=== PATIENT | male | born 1995 | race Caucasian/White ===

== ENCOUNTER → 2020-06-21 14:03 | Outpatient (CLI) | payer BC, SELFPAY ==
[2020-06-22 12:20] LABS: COVID19 Sendout Not Detected (Not Detect)
== END ==
PROVIDERS: Visit Provider Physician Assistant
DX: Z11.59 Encounter for screening for other viral diseases (principal)
CPT/HCPCS: 87635

== ENCOUNTER → 2020-06-24 12:55 | Outpatient (CLI) | payer BC, SELFPAY ==
--- NOTE | 2020-06-30 08:48 | PM.PFT.1 ---
Pulmonary Function Test Referral & Results Date Patient Seen: 06/24/20 Requesting provider: Gerri Dunn Results: The spirometry demonstrates an FVC of 4.67 L which is 79% of predicted. The FEV1 was measured at 3.97 L which is 81% of predicted. The FEV1/FVC ratio was 85 which is 102% of predicted. Following the administration of bronchodilator there was a 14% improvement in FEV1 and a 47% improvement in FEF 25-75%. Lung volumes show an SVC of 4.47 L which is 78% of predicted. The diffusing capacity was measured at 34.73 which is 99% of predicted. The maximum voluntary ventilation was normal Interpretation: This study suggest perhaps mild obstructive lung disease based on slight reduction FEV1 as well as minimal improvement in small airway flow based on improvement in FEF 25-75% after bronchodilator. However reviewing flow volume loop there is really no evidence of obstructive lung disease on that basis There may also be minimal restrictive lung disease based on slight reduction in lung volumes/SVC. Clinical correlation suggested
== END ==
PROVIDERS: PCP Internal Medicine; Referring Provider Internal Medicine; Visit Provider Internal Medicine
DX: J45.20 Mild intermittent asthma, uncomplicated (principal); R06.02 Shortness of breath; Z87.891 Personal history of nicotine dependence
CPT/HCPCS: 94060; 94726; 94729

== ENCOUNTER → 2020-08-04 12:40 | Outpatient (CLI) | payer BC, SELFPAY ==
--- NOTE | 2020-08-04 13:19 | DI.CT.S_ITS ---
PROCEDURE: CT CHEST WO CON INDICATIONS: Pectus excavatum, shortness of breath, Marfans TECHNIQUE: Noncontrast 5 mm thick sections acquired from the pulmonary apices to the posterior costophrenic angles. 1 mm lung window, 5 mm thick coronal and sagittal and 7 mm axial MIP reformats were then acquired. For radiation dose reduction, the following was used: automated exposure control, adjustment of mA and/or kV according to patient size. COMPARISON: None. FINDINGS: Image quality: Excellent. Lungs and pleura: No acute air space opacities. No pleural effusions or pneumothorax. Central and peripheral airways are patent and normal in caliber. Mediastinum: Heart size is normal. No pericardial effusion. There is close association of the right ventricle epicardium with the inward depression of the left anterior chest wall. No mediastinal adenopathy by size criteria. Thoracic aorta and central pulmonary arteries are normal in size. Esophagus is normal in caliber. No hiatal hernia. Bones and chest wall: There is pectus excavatum deformity. The Coleen index is 4.98. There is also inward depression of the left anterior chest wall to a marked degree. This is accentuated by congenital scoliosis which has been partially corrected with Cutler rods. Depression index is 0.93. There is persistent levoscoliosis of the cervical thoracic spine to the level of T3. No suspicious bony lesions. No vertebral body compression fractures. No axillary or supraclavicular adenopathy by size criteria. Thyroid gland is unremarkable . Abdomen: Visualized upper abdominal solid organs and bowel loops appear normal in the absence of contrast. IMPRESSION: 1. Pectus excavatum deformity as described. 2. Partially corrected congenital scoliosis with Cutler rods throughout most of the thoracic spine. Dictated by: Aurelia Ridley M.D. on 08/04/2020 at 14:46 Approved by: Aurelia Ridley M.D. on 08/04/2020 at 15:05
== END ==
PROVIDERS: PCP Internal Medicine; Referring Provider Internal Medicine; Visit Provider Internal Medicine
DX: R06.02 Shortness of breath (principal); Q67.6 Pectus excavatum
CPT/HCPCS: 71250

== ENCOUNTER → 2020-12-30 11:57 | Outpatient (CLI) | payer BC, SELFPAY ==
[2020-12-30] MEDS: COVID-19 VACC #1, MRNA(MOD) 100 MCG/0.5 ML VIAL IM (12:05)
== END ==
PROVIDERS: PCP Internal Medicine; Visit Provider Internal Medicine
DX: Z23 Encounter for immunization (principal)
CPT/HCPCS: 0011A; 91301

== ENCOUNTER → 2021-01-27 11:59 | Outpatient (CLI) | payer BC, SELFPAY ==
[2021-01-27] MEDS: COVID-19 VACC #2, MRNA(MOD) 100 MCG/0.5 ML VIAL IM (12:04)
== END ==
PROVIDERS: PCP Internal Medicine; Visit Provider Internal Medicine
DX: Z23 Encounter for immunization (principal)
CPT/HCPCS: 0012A; 91301

== ENCOUNTER 2021-02-07 17:16 | Emergency (ER) | payer BC, SELFPAY ==
[2021-02-07] VITALS (12 sets, daily range): BP systolic 88–120; BP diastolic 51–68; PULSE 70–110; RESP 15–30; TEMP 36.2; O2SAT 96–100; BMI 15.5
--- NOTE | 2021-02-07 17:37 | DI.CT.S_ITS ---
PROCEDURE: CT HEAD/BRAIN WO CON INDICATIONS: recurrent seizures, outside normal pattern TECHNIQUE: Noncontrast 4.5 mm thick angled axial sections acquired from the foramen magnum to the vertex, with coronal and sagittal reformats. For radiation dose reduction, the following was used: automated exposure control, adjustment of mA and/or kV according to patient size. COMPARISON: None. FINDINGS: Image quality: Excellent. CSF spaces: Basal cisterns are patent. No extra-axial fluid collections. Ventricles are normal in size and shape. Brain: No midline shift. No intracranial masses or hemorrhage. Lange-white matter interface is normal. Skull and face: Calvarium and visualized facial bones are intact, without suspicious lesions. Sinuses: A mucous retention cyst or polyp is seen in the left frontal sinus. The remaining visualized paranasal sinuses and the mastoid air cells are clear. IMPRESSION: 1. No acute intracranial abnormality. Consider MRI of the brain for further evaluation when feasible. 2. Mucous retention cyst or polyp in the left frontal sinus. Dictated by: Jac Cardenas M.D. on 02/07/2021 at 18:05 Approved by: Jac Cardenas M.D. on 02/07/2021 at 18:07
[2021-02-07] MEDS: diazePAM 10 MG/2 ML SYRINGE 5 MG IV (17:40)
--- NOTE | 2021-02-07 17:52 | PC.NURSE ---
Put patient in room 2 via wheelchair. Once he was up on the bed, we were discussing how to use the urinal and patient appeared to have a seizure. I attempted to use the call light but it was not working so I put up a side rail and called for help. Patient appeared to be safe and was unharmed after the episode.
--- NOTE | 2021-02-07 18:08 | ED.SEIZURE ---
HPI - Seizure General Chief Complaint: Seizure Stated Complaint: Yung Bernard Had 6 Time Seen by Provider: 02/07/21 17:20 Source: patient and family Mode of arrival: Wheelchair Limitations: no limitations History of Present Illness HPI Narrative: This is a 26-year-old male comes emergency department with history of seizures. Patient states he was diagnosed around age of 21. He states he was told by his neurologist at that time that he had sort of a hair trigger flight or fight response but they did not have any other specific cause. 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 He denies any other medical issues. He has had adenoids removed. Patient stop taking his Keppra because he was frustrated with his neurologist and also felt like it made him very anxious. Patient was doing well without any seizures for a prolonged but began having seizures about once weekly over the past several weeks and then had 6 episodes today. He describes tonic-clonic activity when they occur, he will often have urinary continence as well as nausea and vomiting immediately afterwards. He does typically get a aura prior to. He states today he did not have any urinary incontinence. He came to emergency department because he had 6 episodes which is very atypical. He has returned to baseline mental status in between. He does not recall the events. States he has only been sleeping 4-5 hours nightly. Patient does use tobacco, he denies any alcohol. He denies any recreational drugs. 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 Patient states he last saw neurologist several years ago and has not reestablished. He does have a primary care with Gerri Dunn. Patient states that Compazine gives him a dystonic type reaction. Related Data Previous Rx's Medication Instructions Recorded zonisamide 100 mg PO DAILY #60 cap 02/07/21 Allergies Allergy/AdvReac Type Severity Reaction Status Date / Time prochlorperazine AdvReac Severe Agitated Verified 02/07/21 17:24 [From Compazine] Review of Systems Review of Systems ROS Unobtainable: All systems reviewed & are unremarkable except as noted in HPI and below Patient History Medical History (Updated 02/07/21 @ 19:45 by Michelle Padilla DO) Marfans syndrome Seizure Social History Smoking Status: Current every day smoker Smoking Status: Current every day smoker tobacco type: vaping alcohol intake frequency: 0-2 drinks per day Substance Use Type: does not use Exam Narrative Exam Narrative: GEN: Thin male tall male with classic Marfan's habitus, alert and oriented x 3, patient appears to be in mild distress. HEENT: Atraumatic, pupils are equal round reactive to light, extraocular movements are intact, nares are clear, TMs are clear with no fluid, there is no conjunctival pallor. Throat is clear without any exudates, erythema, tonsillar enlargement or uvular deviation HEART: Regular rate and rhythm without murmur, clicks, rubs. Pulses are equal in upper and lower extremities. Patient does have pectus excavatum. LUNGS:Lungs clear to auscultation, no wheezes, rales, crackles, chest moves symmetrically, no tachypnea accessory muscle use. ABD:bowel sounds normal, soft, non-tender, no guarding, rebound, rigidity, no masses noted, no hepatosplenomegaly :No CVA tenderness MSCL: Non-tender, no muscle atrophy, muscles strength 5/5 upper and lower extremities, full range of motion NEURO:CN 2-12 intact, sensation normal, reflexes 2/4 upper and lower extremities. finger nose finger test normal, heel magana test normal SKIN: No rash, erythema or other skin changes noted Initial Vital Signs Initial Vital Signs: Vital Signs Temperature 97.1 F L 02/07/21 17:19 Pulse Rate 110 H 02/07/21 17:19 Respiratory Rate 24 02/07/21 17:19 Blood Pressure 120/68 02/07/21 17:19 Pulse Oximetry 100 02/07/21 17:19 Course Orders Ordered: Discontinued Medications Diazepam (Diazepam 10 Mg/2 Ml Syringe) 5 mg IV NOW ONE Stop: 02/07/21 17:30 Last Admin: 02/07/21 17:40 Dose: 5 mg Documented by: ELISHA Levetiracetam 1,550 mg/ Sodium (Chloride) 115.5 mls @ 462 mls/hr IV NOW ONE Stop: 02/07/21 18:04 Last Infusion: 02/07/21 19:26 Dose: 0 mls/hr Documented by: Admin: 02/07/21 18:46 Dose: 462 mls/hr Documented by: ELISHA Ondansetron HCl (Ondansetron 4 Mg/2 Ml Inj) 4 mg IV NOW ONE Stop: 02/07/21 18:24 Last Admin: 02/07/21 18:30 Dose: 4 mg Documented by: ELISHA Consultations Consultation #1: Dr. Jonathon Johnson with neurology recommends starting sinus [place], 100 mg q.h.s. x5 days then 200 mg q.h.s. x5 days, then 300 mg q.h.s. they are happy to follow-up with the outpatient clinic. Also spoke with coordinator who gave me Juanis Givens with vascular at [facility] for Marfans follow up. Time: 21:03 Vital Signs Vital signs: Vital Signs - 8 hr 02/07/21 21:00 Pulse Rate 82 Respiratory Rate 21 Blood Pressure 107/56 L Pulse Oximetry 96 MDM - Seizure Lab Data Attestation: I reviewed the patient's lab results. Result diagrams: 02/07/21 18:25 02/07/21 18:25 Labs: Lab Results 02/07/21 02/07/21 02/07/21 Range/Units 18:00 18:00 18:25 WBC 7.2 (4.5-11.0) X10^3/uL RBC 4.76 (4.5-5.9) X10^6/uL Hgb 14.6 (13.5-17.5) g/dL Hct 41.8 (41-53) % MCV 87.8 (80-100) fL MCH 30.7 (26-34) PG MCHC 35.0 (30-36) % RDW 13.2 (11.6-14.8) % Plt Count 219 (150-400) X10^3/uL Neut % (Auto) 72.2 (50-75) % Lymph % (Auto) 20.8 L (25-40) % [place] % (Auto) 5.5 (3-14) % Eos % (Auto) 1.0 L (2-4) % Baso % (Auto) 0.5 (0-2) % Neut # (Auto) 5200 (5870-9724) /uL Lymph # (Auto) 1500 (1129-5536) /uL [place] # (Auto) 400 (0-900) /uL Eos # (Auto) 100 (0-450) /uL Baso # (Auto) 0 (0-100) /uL Sodium (137-145) mmol/L Potassium (3.4-5.1) mmol/L Chloride (98-107) mmol/L Carbon Dioxide (22-32) mmol/L BUN (9-20) mg/dL Creatinine (0.66-1.25) mg/dL Estimated GFR (>60) mL/min BUN/Creatinine Ratio (6-22) Glucose (70-100) mg/dL Calcium (8.4-10.2) mg/dL Phosphorus (2.5-4.5) mg/dL Magnesium (1.6-2.3) mg/dL Prolactin (3.7-17.9) ng/mL Urine Color Yellow Urine Appearance Clear Urine pH 5.5 (4.5-8.0) Ur Specific Harvey 1.010 (1.000-1.035) Urine Protein Negative (Negative) Urine Glucose (UA) Negative (Negative) g/dL Urine Ketones Negative (NEGATIVE) Urine Occult Blood Negative (Negative) Urine Nitrate Negative (Negative) Urine Bilirubin Negative (NEGATIVE) Urine Urobilinogen 0.2 (0.2) E.U./dL Ur Leukocyte Esterase Negative (NEGATIVE) Urine RBC None seen (0-5/HPF) Urine WBC None seen (0-5/HPF) Urine Bacteria None seen (None) Ur Culture Indicated? Cult not indicated U Opiates 300ng/mL cut Negative (Negative) Ur Oxycodone Screen Negative (Negative) Urine Methadone Screen Negative (Negative) Ur Barbiturates Screen Negative (Negative) U Tricyclic Antidepress Negative (Negative) Ur Phencyclidine Scrn Negative (Negative) Ur Amphetamines Screen Negative (Negative) U Methamphetamines Scrn Negative (Negative) Ur MDMA Scrn (Ecstasy) Negative (Negative) U Benzodiazepines Scrn Negative (Negative) Urine Cocaine Screen Negative (Negative) U Marijuana (THC) Screen Negative (Negative) 02/07/21 Range/Units 18:25 WBC (4.5-11.0) X10^3/uL RBC (4.5-5.9) X10^6/uL Hgb (13.5-17.5) g/dL Hct (41-53) % MCV (80-100) fL MCH (26-34) PG MCHC (30-36) % RDW (11.6-14.8) % Plt Count (150-400) X10^3/uL Neut % (Auto) (50-75) % Lymph % (Auto) (25-40) % [place] % (Auto) (3-14) % Eos % (Auto) (2-4) % Baso % (Auto) (0-2) % Neut # (Auto) (2657-7400) /uL Lymph # (Auto) (7952-7570) /uL [place] # (Auto) (0-900) /uL Eos # (Auto) (0-450) /uL Baso # (Auto) (0-100) /uL Sodium 142 (137-145) mmol/L Potassium 4.3 (3.4-5.1) mmol/L Chloride 104 (98-107) mmol/L Carbon Dioxide 30 (22-32) mmol/L BUN 11 (9-20) mg/dL Creatinine 0.85 (0.66-1.25) mg/dL Estimated GFR > 60.0 (>60) mL/min BUN/Creatinine Ratio 12.9 (6-22) Glucose 104 H (70-100) mg/dL Calcium 9.9 (8.4-10.2) mg/dL Phosphorus 2.6 (2.5-4.5) mg/dL Magnesium 2.2 (1.6-2.3) mg/dL Prolactin 11.3 (3.7-17.9) ng/mL Urine Color Urine Appearance Urine pH (4.5-8.0) Ur Specific Harvey (1.000-1.035) Urine Protein (Negative) Urine Glucose (UA) (Negative) g/dL Urine Ketones (NEGATIVE) Urine Occult Blood (Negative) Urine Nitrate (Negative) Urine Bilirubin (NEGATIVE) Urine Urobilinogen (0.2) E.U./dL Ur Leukocyte Esterase (NEGATIVE) Urine RBC (0-5/HPF) Urine WBC (0-5/HPF) Urine Bacteria (None) Ur Culture Indicated? U Opiates 300ng/mL cut (Negative) Ur Oxycodone Screen (Negative) Urine Methadone Screen (Negative) Ur Barbiturates Screen (Negative) U Tricyclic Antidepress (Negative) Ur Phencyclidine Scrn (Negative) Ur Amphetamines Screen (Negative) U Methamphetamines Scrn (Negative) Ur MDMA Scrn (Ecstasy) (Negative) U Benzodiazepines Scrn (Negative) Urine Cocaine Screen (Negative) U Marijuana (THC) Screen (Negative) Urine Dip Bedside Urine Glucose Negative Bedside Urine Bilirubin - Negative Bedside Urine Ketone - Negative Urine Specific Harvey 1.015 Bedside Urine Occult Blood - Negative Bedside Urine pH 6 Bedside Urine Protein - Negative Bedside Urine Urobilinogen - Negative Bedside Urine Nitrite - Negative Bedside Urine Leukocytes - Negative Esterase Imaging Data CT scan - head: Radiologist's Impression: [address] [id number] Scan ReportSigned Patient: Александр Resendiz DMR#: [id number]: [id number]:[id number]/Sex: 26 / MDate of Service: 02/07/21Loc: EDAccession Number: [id number] Procedure: CT head/brain wo con Ordering Provider: Livan Sosa D.O. PROCEDURE: CT HEAD/BRAIN WO CON INDICATIONS: recurrent seizures, outside normal pattern TECHNIQUE: Noncontrast 4.5 mm thick angled axial sections acquired from the foramen magnum to the vertex, with coronal and sagittal reformats. For radiation dose reduction, the following was used: automated exposure control, adjustment of mA and/or kV according to patient size. COMPARISON: None. FINDINGS: Image quality: Excellent. CSF spaces: Basal cisterns are patent. No extra-axial fluid collections. Ventricles are normal in size and shape. Brain: No midline shift. No intracranial masses or hemorrhage. Lange-white matter interface is normal. Skull and face: Calvarium and visualized facial bones are intact, without suspicious lesions. Sinuses: A mucous retention cyst or polyp is seen in the left frontal sinus. The remaining visualized paranasal sinuses and the mastoid air cells are clear. IMPRESSION: 1. No acute intracranial abnormality. Consider MRI of the brain for further evaluation when feasible. 2. Mucous retention cyst or polyp in the left frontal sinus. Dictated by: Jac Cardenas M.D. on 02/07/2021 at 18:05 Approved by: Jac Cardenas M.D. on 02/07/2021 at 18:07 ECG Data Attestation: I personally reviewed and interpreted this ECG as follows: Prior ECG tracings: not available for review Interpretation: Sinus rhythm with incomplete right bundle branch. Rate of 91, P are 134 QRS of 96 and QTC of 420. No acute ischemic changes noted. MDM Narrative Medical decision making narrative: This is a 26-year-old male with known Marfan as well as seizure disorder. Patient had quit his anti seizure medication several years ago. He has had increasing frequency of seizures over the last several weeks with description of 6 episodes today although he has returned to baseline in between. Head CT, labs and urine studies do not show any acute provoking factors. Patient does note that he has only been sleeping 4-5 hours nightly which could potentially be increasing his likelihood for seizure. He had been on Keppra most recently but had not felt well on that medication he preferred when he was taking zonisamide. He had been taking 3 tablets when he felt that he was at his best. Because of patient's Marfans history, [facility] was consulted/I spoke with Neurology coverage which was to [facility]. Dr. Jonathon Packer who recommends titrating up his zonisamide back to prior levels. I was also given contact for their Marfan follow-up clinic and this was relayed to the patient. Patient was given contact information for both but we discussed that they may need an official referral through their primary care as sometimes in emergency room ?referral is not adequate. Discharge Plan Departure Patient Disposition: Home Clinical Impression: Seizure-like activity Instructions: Seizure Disorder -- Adult Activity Restrictions/Additional Instructions: Follow up with neurology. Call for an appointment. I spoke with Dr. Elizabeth Johnson with neurology at [facility]. Takes zonisamide 100 mg nightly x5 days, then increase to 200 mg nightly x5 days, then increase to 300 mg nightly. Prescription to [facility] in [place]. You can also follow up with Juanis Givens who works with patients with Marfans at [facility] Your primary care can help with any additional referrals if needed. Please return for fevers, altered mental status, recurrent seizures, severe headaches, new chest pain, shortness of breath, persistent vomiting, new numbness, weakness tingling or other new or concerning symptoms. Prescriptions: New zonisamide 100 mg capsule 100 mg PO DAILY Qty: 60 RF: 0 Referrals: Gerri Dunn ARNP [Primary Care Provider] -
[2021-02-07 18:23] LABS: Bacteria Urine None Seen; RBC Urine None Seen (0-5/HPF); WBC Urine None Seen (0-5/HPF)
[2021-02-07] MEDS: ONDANSETRON 4 MG/2 ML INJ IV (18:30)
[2021-02-07 18:35] LABS: Add Manual Diff / Slide Review NO; Basophils Absolute Auto 0 /uL (0-100); Basophils Percent Auto 0.5 % (0-2); Eosinophils Absolute Auto 100 /uL (0-450); Hematocrit 41.8 % (41-53); Hemoglobin 14.6 g/dL (13.5-17.5); Lymphocytes Absolute Auto 1500 /uL (1100-4500); Lymphocytes Percent Auto 20.8 % (25-40); Mean Corpuscular Hemoglobin 30.7 PG (26-34); Mean Corpuscular Volume 87.8 fL (80-100); Monocytes Absolute Auto 400 /uL (0-900); Monocytes Percent Auto 5.5 % (3-14); Neutrophils Absolute Auto 5200 /uL (1500-7000); Neutrophils Percent Auto 72.2 % (50-75); Platelet Count 219 X10^3/uL (150-400); Red Blood Cell Count 4.76 X10^6/uL (4.5-5.9); Red Cell Distribution Width 13.2 % (11.6-14.8); White Blood Cell Count 7.2 X10^3/uL (4.5-11.0)
[2021-02-07] MEDS: SODIUM CHLORIDE 0.9% IV (18:46)
[2021-02-07] MEDS: LEVETIRACETAM IV (18:46)
[2021-02-07 19:04] LABS: Ur Creatinine Normal (Normal); Ur Specific Gravity Normal (Normal); Urine pH Normal (Normal)
[2021-02-07 19:05] LABS: UR Morphine/Opiate cutoff 300 Negative (Negative); Urine Amphetamines Negative (Negative); Urine Barbiturates Negative (Negative); Urine Benzodiazepines Negative (Negative); Urine Cocaine Negative (Negative); Urine MDMA Negative (Negative); Urine Methadone Negative (Negative); Urine Methamphetamines Negative (Negative); Urine Oxycodone Negative (Negative); Urine Phencyclidine Negative (Negative); Urine Tetrahydrocannabinol Negative (Negative); Urine Tricyclic Antidepressant Negative (Negative)
[2021-02-07 19:09] LABS: HEMOLYSIS < 15 (0-50)
[2021-02-07 19:15] LABS: BUN Creatinine Ratio 12.9 (6-22); Blood Urea Nitrogen 11 mg/dL (9-20); Calcium 9.9 mg/dL (8.4-10.2); Carbon Dioxide 30 mmol/L (22-32); Chloride 104 mmol/L (98-107); Estimated Glomerular Filt Rate > 60.0 mL/min (>60); Glucose 104 mg/dL (70-100); Magnesium 2.2 mg/dL (1.6-2.3); Phosphorous 2.6 mg/dL (2.5-4.5); Potassium 4.3 mmol/L (3.4-5.1); Sodium 142 mmol/L (137-145)
[2021-02-07 19:16] LABS: Appearance Urine UA CLEAR; Bilirubin Urine UA NEGATIVE (NEGATIVE); Color Urine UA YELLOW; Glucose Urine UA NEGATIVE (Negative); Ketones Urine UA NEGATIVE (NEGATIVE); Leukocyte Esterase Urine UA NEGATIVE (NEGATIVE); Nitrite Urine UA NEGATIVE (Negative); Occult Blood Urine UA NEGATIVE (Negative); Protein Urine UA NEGATIVE (Negative); Urobilinogen Urine UA 0.2 E.U./dL (0.2); pH Urine UA 5.5 (4.5-8.0)
[2021-02-07 19:21] LABS: Culture Indicated Urine Cult Not Indicated
[2021-02-07 20:44] LABS: Prolactin 11.3 ng/mL (3.7-17.9)
== END 2021-02-07 21:41 | disposition home or self-care (01) ==
PROVIDERS: Emergency Medicine; Emergency Provider Emergency Medicine; PCP Internal Medicine
DX: R56.9 Unspecified convulsions (principal)
CPT/HCPCS: 36415; 70450; 80048; 80305; 81001; 81003; 83735; 84100; 84146; 85025; 93005; 93010; 96365; 96375; 99284; J1953; J2405; J3360

== ENCOUNTER 2021-02-08 15:53 | Emergency (ER) | payer BC, SELFPAY ==
[2021-02-08] VITALS (47 sets, daily range): BP systolic 73–144; BP diastolic 50–72; PULSE 65–117; RESP 14–36; TEMP 37.2; O2SAT 95–100; BMI 15.5
--- NOTE | 2021-02-08 15:48 | ED.SEIZURE ---
HPI - Seizure <Livan Sosa DO - Last Filed: 02/09/21 06:33> General Chief Complaint: Seizure Stated Complaint: Multiple seizures Time Seen by Provider: 02/08/21 15:54 Source: patient, family and EMS Mode of arrival: EMS Limitations: no limitations History of Present Illness HPI Narrative: 26-year-old male nonsmoker with history of Marfan's and seizures presents for the 2nd time in 2 days and a chief complaint of recurrent seizures. He does have a longstanding history of seizures and had been on Keppra previously and under the care of a neurologist out of the local area. He had been off his medications for a while but sounds like he had recently resumed his zonisamide. He has had no recent traumas or injuries. He has had no fever or chills. He had been seizure fever for quite some time and then had been having then weekly for the past few weeks and had multiple seizures yesterday and presented by EMS for evaluation. He had a thorough workup, was loaded on Keppra, had a negative CT and lab work. The provider had consulted with the [facility] and Neurology at [facility] recommended increasing Zonisamide to previous levels. Related Data Previous Rx's Medication Instructions Recorded zonisamide 100 mg PO DAILY #60 cap 02/07/21 Allergies Allergy/AdvReac Type Severity Reaction Status Date / Time prochlorperazine AdvReac Severe Agitated Verified 02/07/21 17:24 [From Compazine] Review of Systems <DO Ro Rosales Last Filed: 02/09/21 06:33> Constitutional Constitutional: Denies chills, Denies fatigue, Denies fever(s), Denies frequent falls, Denies lethargy and Denies weakness Eyes Eyes: Denies change in vision, Denies eye discharge, Denies irritation and Denies loss of vision ENT Ears, Nose, Mouth, and Throat: Denies change in voice, Denies dizziness, Denies neck pain, Denies sore throat and Denies throat swelling Cardiovascular Cardiovascular: Denies chest pain, Denies irregular heart rhythm, Denies lightheadedness, Denies palpitations, Denies dyspnea, Denies dyspnea on exertion and Denies orthopnea Respiratory Respiratory: Denies cough, Denies dyspnea, Denies dyspnea on exertion and Denies wheezing Gastrointestinal Gastrointestinal: Denies abdominal pain, Denies change in bowel habits, Denies diarrhea, Denies nausea and Denies vomiting Musculoskeletal Musculoskeletal: Denies neck pain and Denies numbness Integumentary/Breasts Skin/Breast: Denies pruritus, Denies erythema, Denies rash and Denies wounds Neurologic Neurologic: Denies behavioral changes, Denies confusion, Denies dizziness, Denies frequent falls, Denies loss of vision, Denies numbness and Denies weakness Psychiatric Psychiatric: Denies anxiety, Denies behavioral changes, Denies confusion, Denies depression, Denies homicidal ideation and Denies suicidal ideation Endocrine Endocrine: Denies fatigue, Denies flushing and Denies palpitations Hematologic/Lymphatic Hematologic/Lymphatic: Denies easy bruising Allergic/Immunologic Allergic/Immunologic: Denies urticaria, Denies throat swelling and Denies wheezing Patient History <Livan Sosa DO - Last Filed: 02/09/21 06:33> Medical History Marfans syndrome Seizure Social History Smoking Status: Never smoker Smoking Status: Never smoker alcohol intake frequency: 0-2 drinks per day Substance Use Type: does not use Exam <Livan Sosa DO - Last Filed: 02/09/21 06:33> Narrative Exam Narrative: GENERAL: [26] year old patient appears stated age. Thin, marfanoid, in distress, postictal HEAD: Atraumatic. Normocephalic. EYES: Pupils equal round and reactive. Extraocular motions intact. No scleral icterus. No injection or drainage. ENT: Nose without bleeding, purulent drainage. Throat without erythema, tonsillar hypertrophy or exudate. Airway patent. NECK: Trachea midline. Non tender CARDIOVASCULAR: Regular rate and rhythm without murmurs, gallops, or rubs. RESPIRATORY: Clear to auscultation. Breath sounds equal bilaterally. No wheezes, rales, or rhonchi. GASTROINTESTINAL: Abdomen soft, non-tender, nondistended. EXTREMITIES: No edema or joint tenderness. BACK: Nontender without deformity or crepitance. No flank tenderness. NEURO: Of tongue did but guarding airway, no obvious focal neurologic deficits SKIN: No rash or erythema of visible areas Initial Vital Signs Initial Vital Signs: Vital Signs Pulse Rate 101 H 05/11/21 15:54 Pulse Oximetry 99 02/08/21 15:54 <Aretha Posada MD - Last Filed: 02/09/21 05:56> Initial Vital Signs Initial Vital Signs: Vital Signs Pulse Rate 101 H 02/08/21 15:54 Pulse Oximetry 99 02/08/21 15:54 Course <Livan Sosa DO - Last Filed: 02/09/21 06:33> Course Course Narrative: Patient has had multiple seizures today and during his visit in the emergency department. EMS had given Versed, and we have given multiple doses of Ativan and Valium. They tend to last between 30 and 120 seconds, and are generalized in nature, he becomes a bit contorted and flexed eyes remain open with lateral gaze. He has frequently between 5 and 20 minutes between his seizures and though he does not quite returned to baseline he does become alert and oriented though sluggish to respond. Orders Ordered: ED Orders 02/09/21 01:03 COVID19 -Nasal swab/Pre-Proc Stat Discontinued Medications Diazepam (Diazepam 10 Mg/2 Ml Syringe) 5 mg IV NOW ONE Stop: 02/08/21 16:28 Last Admin: 02/08/21 17:35 Dose: Not Given Documented by: MOHAN Diazepam (Diazepam 10 Mg/2 Ml Syringe) 10 mg IV NOW ONE Stop: 02/08/21 17:28 Last Admin: 02/08/21 17:28 Dose: 10 mg Documented by: MOHAN Sodium Chloride (Normal Saline 0.9%) 1,000 mls @ 1,000 mls/hr IV BOLUS ONE Stop: 02/08/21 16:54 Last Infusion: 02/08/21 16:37 Dose: 0 mls/hr Documented by: Admin: 02/08/21 16:12 Dose: 1,000 mls/hr Documented by: MOHAN Levetiracetam 1,000 mg/ Sodium (Chloride) 110 mls @ 440 mls/hr IV NOW ONE Stop: 02/08/21 15:56 Last Infusion: 02/08/21 16:36 Dose: 0 mls/hr Documented by: Admin: 02/08/21 16:13 Dose: 440 mls/hr Documented by: MOHAN Levetiracetam 1,550 mg/ Sodium (Chloride) 115.5 mls @ 462 mls/hr IV NOW ONE Stop: 02/08/21 17:17 Last Infusion: 02/08/21 17:41 Dose: 0 mls/hr Documented by: Admin: 02/08/21 17:24 Dose: 462 mls/hr Documented by: MOHAN Sodium Chloride (Normal Saline 0.9%) 1,000 mls @ 150 mls/hr IV CONT YONI Last Infusion: 02/09/21 02:29 Dose: 0 mls/hr Documented by: Admin: 02/08/21 20:00 Dose: 150 mls/hr Documented by: Infusion: 02/08/21 20:00 Dose: 150 mls/hr Documented by: Admin: 02/08/21 17:38 Dose: 150 mls/hr Documented by: MOHAN Fosphenytoin Sodium 1,000 mg/ (Sodium Chloride) 120 mls @ 240 mls/hr IV NOW ONE Stop: 02/09/21 01:51 Last Infusion: 02/09/21 02:30 Dose: 0 mls/hr Documented by: Admin: 02/09/21 01:58 Dose: 240 mls/hr Documented by: TRIPP Midazolam HCl (Midazolam 2 Mg/2 Ml Vial) 5 mg IV NOW ONE Stop: 02/08/21 23:52 Last Admin: 02/09/21 00:10 Dose: 5 mg Documented by: TRIPP Midazolam HCl (Midazolam 5 Mg/Ml Vial) 5 mg IM NOW ONE Stop: 02/09/21 01:12 Last Admin: 02/09/21 01:13 Dose: 5 mg Documented by: TRIPP Ondansetron HCl (Ondansetron 4 Mg/2 Ml Inj) 4 mg IV NOW ONE Stop: 02/08/21 16:28 Last Admin: 02/08/21 16:33 Dose: 4 mg Documented by: MOHAN Zonisamide (Zonisamide 100 Mg Capsule) 100 mg PO [facility]TIME [facility] Last Admin: 02/08/21 22:01 Dose: 100 mg Documented by: TRIPP Consultations Consultation #1: Call to [facility] for continuity from yesterday's visit. No beds. Neurology suggests holding Benzos for seizure <3 minutes, happy with Keppra load. Agrees he needs placement for EEG at this point 1844 - call to [facility]. No beds. [facility]. No beds. Prov No beds. 1845 - call to Time: 17:36 Vital Signs Vital signs: Vital Signs - 8 hr 02/08/21 23:00 02/08/21 23:30 02/09/21 00:00 Pulse Rate 92 H 98 H 125 H Respiratory Rate 21 22 25 H Blood Pressure 113/66 113/67 Pulse Oximetry 98 97 99 02/09/21 00:30 02/09/21 01:00 02/09/21 01:30 Pulse Rate 90 98 H 82 Respiratory Rate 25 H 29 H 16 Blood Pressure 99/56 L 108/63 83/53 L Pulse Oximetry 96 97 98 02/09/21 02:00 Pulse Rate 81 Respiratory Rate 22 Blood Pressure 103/57 L Pulse Oximetry 97 <Aretha Posada MD - Last Filed: 02/09/21 05:56> Orders Ordered: ED Orders 02/09/21 01:03 COVID19 -Nasal swab/Pre-Proc Stat Discontinued Medications Diazepam (Diazepam 10 Mg/2 Ml Syringe) 5 mg IV NOW ONE Stop: 02/08/21 16:28 Last Admin: 02/08/21 17:35 Dose: Not Given Documented by: MOHAN Diazepam (Diazepam 10 Mg/2 Ml Syringe) 10 mg IV NOW ONE Stop: 02/08/21 17:28 Last Admin: 02/08/21 17:28 Dose: 10 mg Documented by: MOHAN Sodium Chloride (Normal Saline 0.9%) 1,000 mls @ 1,000 mls/hr IV BOLUS ONE Stop: 02/08/21 16:54 Last Infusion: 02/08/21 16:37 Dose: 0 mls/hr Documented by: Admin: 02/08/21 16:12 Dose: 1,000 mls/hr Documented by: MOHAN Levetiracetam 1,000 mg/ Sodium (Chloride) 110 mls @ 440 mls/hr IV NOW ONE Stop: 02/08/21 15:56 Last Infusion: 02/08/21 16:36 Dose: 0 mls/hr Documented by: Admin: 02/08/21 16:13 Dose: 440 mls/hr Documented by: MOHAN Levetiracetam 1,550 mg/ Sodium (Chloride) 115.5 mls @ 462 mls/hr IV NOW ONE Stop: 02/08/21 17:17 Last Infusion: 02/08/21 17:41 Dose: 0 mls/hr Documented by: Admin: 02/08/21 17:24 Dose: 462 mls/hr Documented by: MOHAN Sodium Chloride (Normal Saline 0.9%) 1,000 mls @ 150 mls/hr IV CONT YONI Last Infusion: 02/09/21 02:29 Dose: 0 mls/hr Documented by: Admin: 02/08/21 20:00 Dose: 150 mls/hr Documented by: Infusion: 02/08/21 20:00 Dose: 150 mls/hr Documented by: Admin: 02/08/21 17:38 Dose: 150 mls/hr Documented by: MOHAN Fosphenytoin Sodium 1,000 mg/ (Sodium Chloride) 120 mls @ 240 mls/hr IV NOW ONE Stop: 02/09/21 01:51 Last Infusion: 02/09/21 02:30 Dose: 0 mls/hr Documented by: Admin: 02/09/21 01:58 Dose: 240 mls/hr Documented by: TRIPP Midazolam HCl (Midazolam 2 Mg/2 Ml Vial) 5 mg IV NOW ONE Stop: 02/08/21 23:52 Last Admin: 02/09/21 00:10 Dose: 5 mg Documented by: TRIPP Midazolam HCl (Midazolam 5 Mg/Ml Vial) 5 mg IM NOW ONE Stop: 02/09/21 01:12 Last Admin: 02/09/21 01:13 Dose: 5 mg Documented by: TRIPP Ondansetron HCl (Ondansetron 4 Mg/2 Ml Inj) 4 mg IV NOW ONE Stop: 02/08/21 16:28 Last Admin: 02/08/21 16:33 Dose: 4 mg Documented by: MOHAN Zonisamide (Zonisamide 100 Mg Capsule) 100 mg PO BEDTIME [facility] Last Admin: 02/08/21 22:01 Dose: 100 mg Documented by: TRIPP Reevaluation(s) Reevaluation #1: 830pm 26-year-old gentleman with recurrent seizures. Care is assumed from Dr. Sosa. This gentleman was in the emergency room yesterday after significant increased seizure activity. He eventually was felt to be safe for home discharge with a plan to increase back to 300 mg of zonisamide. He was supposed to be taking 100 mg daily for 5 days, 200 mg for 5 days then to 300. After discharge she had an additional 7 seizures and returns back to the emergency department for further evaluation. Imaging and labs are unremarkable. He received a total of 15 mg of IV Valium to help control the seizures today and a total of 2550 mg of IV Keppra. His seizures last approximately 1 minute and are tonic clonic with postictal period and short return to baseline prior to his next seizures. He does not appear to be in status and is currently maintaining his airway. Recommendation from Neurology consultation at the [facility] day was to try to avoid additional benzos unless his seizures are longer than 3 minutes to not cause additional respiratory depression and intubation. At this time hospitals up and down the [facility] corridor are on critical divert. The last possible option was perhaps a bed at [facility]. Just spoke with Dr. Noel, neurologist on-call. Given the fact that the patient is currently stable, not seizure inguinal not intubated he did not feel that he was critical enough to warrant using the last critical bed in the hospital for transport. He did recommend contacting the patient's primary neurologist in transferring to a hospital where they could continue his evaluation. At this time, will plan on boarding him in the emergency department overnight and beginning again with his primary physician at the [facility] to see if we can eventually have him transfer down. If he is awake enough this evening will make sure that he does receive his 100 mg of zonisamide. Assuming that he does remain in the emergency department overnight will also plan on 1500 mg of Keppra to continue IV. Time: 22:35 Reevaluation #2: 15 second seizure with posticatal period. Zonisamide was given. No additional benzos per recommendation to hold off unless the seizure is longer than 3 min. Within a few minutes Within a few minutes a 2nd seizure that lasted a little over a minute and was treated with 2 mg of IV Ativan. At 11:30 p.m. he had another seizure lasting of little over a minute, he did wake up and talk and then had a 4th seizure. He is now continuing to have seizures lasting between 15 seconds in a minute and half with clearing between but increasing in frequency. In further questioning his initial zonisamide was prescribed by a doctor in [place]. The Keppra was by a doctor in [place]. It is not clear if he has been continuing on chronic seizure medications recently. Does not describe recent Neurologic consultation in this area. 12:50 [facility] has returned phone calls and bed is available. After talking with Dr. Noel earlier in the evening have now talked with Dr. Perales. Care is accepted. They are aware that his seizures are continuing and increasing in frequency at this point. ALS transport will be arranged. Will make sure CT scan has been electronically sent to [facility] and will make sure COVID study has been sent. 1:50 patient continues to have recurrent short seizures with recovery in between. Ground transport crew with only 1 person in the back did not feel that ground transport was safe. They requested intubation. At this point continues to be alert between the brief seizures and I do not think intubation is yet required. Will add 1 g of fosphenytoin due to the increasing frequency of the seizures. [facility] is contacted to help with transport Vital Signs Vital signs: Vital Signs - 8 hr 02/08/21 23:00 02/08/21 23:30 02/09/21 00:00 Pulse Rate 92 H 98 H 125 H Respiratory Rate 21 22 25 H Blood Pressure 113/66 113/67 Pulse Oximetry 98 97 99 02/09/21 00:30 02/09/21 01:00 02/09/21 01:30 Pulse Rate 90 98 H 82 Respiratory Rate 25 H 29 H 16 Blood Pressure 99/56 L 108/63 83/53 L Pulse Oximetry 96 97 98 02/09/21 02:00 Pulse Rate 81 Respiratory Rate 22 Blood Pressure 103/57 L Pulse Oximetry 97 MDM - Seizure <Livan Sosa DO - Last Filed: 02/09/21 06:33> Lab Data Result diagrams: 02/08/21 16:03 02/08/21 16:03 Labs: Lab Results 02/08/21 02/08/21 02/08/21 Range/Units 16:03 16:03 17:30 WBC 5.8 (4.5-11.0) X10^3/uL RBC 4.64 (4.5-5.9) X10^6/uL Hgb 13.9 (13.5-17.5) g/dL Hct 40.6 L (41-53) % MCV 87.5 (80-100) fL MCH 30.1 (26-34) PG MCHC 34.3 (30-36) % RDW 13.2 (11.6-14.8) % Plt Count 201 (150-400) X10^3/uL Neut % (Auto) 68.0 (50-75) % Lymph % (Auto) 23.7 L (25-40) % [place] % (Auto) 6.2 (3-14) % Eos % (Auto) 1.5 L (2-4) % Baso % (Auto) 0.6 (0-2) % Neut # (Auto) 4000 (6958-2184) /uL Lymph # (Auto) 1400 (0964-4446) /uL [place] # (Auto) 400 (0-900) /uL Eos # (Auto) 100 (0-450) /uL Baso # (Auto) 0 (0-100) /uL Sodium 139 (137-145) mmol/L Potassium 3.9 (3.4-5.1) mmol/L Chloride 107 (98-107) mmol/L Carbon Dioxide 25 (22-32) mmol/L BUN 13 (9-20) mg/dL Creatinine 0.94 (0.66-1.25) mg/dL Estimated GFR > 60.0 (>60) mL/min BUN/Creatinine Ratio 13.8 (6-22) Glucose 85 (70-100) mg/dL Calcium 9.0 (8.4-10.2) mg/dL Total Bilirubin 0.7 (0.2-1.3) mg/dL AST 25 (17-59) IU/L ALT 17 (<50) IU/L Alkaline Phosphatase 34 L (38-126) U/L Total Protein 6.8 (6.3-8.2) g/dL Albumin 4.0 (3.5-5.0) g/dL Globulin 2.8 (1.7-4.1) g/dL Albumin/Globulin Ratio 1.4 (1.0-2.8) Urine Color Urine Appearance Urine pH (4.5-8.0) Ur Specific [place] (1.000-1.035) Urine Protein (Negative) Urine Glucose (UA) (Negative) g/dL Urine Ketones (NEGATIVE) Urine Occult Blood (Negative) Urine Nitrate (Negative) Urine Bilirubin (NEGATIVE) Urine Urobilinogen (0.2) E.U./dL Ur Leukocyte Esterase (NEGATIVE) Urine RBC (0-5/HPF) Urine WBC (0-5/HPF) Urine Bacteria (None) Urine Sperm Ur Culture Indicated? U Opiates 300ng/mL cut Negative (Negative) Ur Oxycodone Screen Negative (Negative) Urine Methadone Screen Negative (Negative) Ur Barbiturates Screen Negative (Negative) U Tricyclic Antidepress Negative (Negative) Ur Phencyclidine Scrn Negative (Negative) Ur Amphetamines Screen Negative (Negative) U Methamphetamines Scrn Negative (Negative) Ur MDMA Scrn (Ecstasy) Negative (Negative) U Benzodiazepines Scrn Positive H (Negative) Urine Cocaine Screen Negative (Negative) U Marijuana (THC) Screen Negative (Negative) SARS-CoV-2 (PCR) (Negative) 02/08/21 02/09/21 Range/Units 17:30 01:03 WBC (4.5-11.0) X10^3/uL RBC (4.5-5.9) X10^6/uL Hgb (13.5-17.5) g/dL Hct (41-53) % MCV (80-100) fL MCH (26-34) PG MCHC (30-36) % RDW (11.6-14.8) % Plt Count (150-400) X10^3/uL Neut % (Auto) (50-75) % Lymph % (Auto) (25-40) % [place] % (Auto) (3-14) % Eos % (Auto) (2-4) % Baso % (Auto) (0-2) % Neut # (Auto) (3921-0462) /uL Lymph # (Auto) (8426-0372) /uL [place] # (Auto) (0-900) /uL Eos # (Auto) (0-450) /uL Baso # (Auto) (0-100) /uL Sodium (137-145) mmol/L Potassium (3.4-5.1) mmol/L Chloride (98-107) mmol/L Carbon Dioxide (22-32) mmol/L BUN (9-20) mg/dL Creatinine (0.66-1.25) mg/dL Estimated GFR (>60) mL/min BUN/Creatinine Ratio (6-22) Glucose (70-100) mg/dL Calcium (8.4-10.2) mg/dL Total Bilirubin (0.2-1.3) mg/dL AST (17-59) IU/L ALT (<50) IU/L Alkaline Phosphatase (38-126) U/L Total Protein (6.3-8.2) g/dL Albumin (3.5-5.0) g/dL Globulin (1.7-4.1) g/dL Albumin/Globulin Ratio (1.0-2.8) Urine Color Yellow Urine Appearance Clear Urine pH 6.5 (4.5-8.0) Ur Specific [place] 1.015 (1.000-1.035) Urine Protein Negative (Negative) Urine Glucose (UA) Negative (Negative) g/dL Urine Ketones Negative (NEGATIVE) Urine Occult Blood Trace-lysed (Negative) Urine Nitrate Negative (Negative) Urine Bilirubin Negative (NEGATIVE) Urine Urobilinogen 0.2 (0.2) E.U./dL Ur Leukocyte Esterase Negative (NEGATIVE) Urine RBC 0-1/hpf (0-5/HPF) Urine WBC None seen (0-5/HPF) Urine Bacteria None seen (None) Urine Sperm Occasional Ur Culture Indicated? Cult not indicated U Opiates 300ng/mL cut (Negative) Ur Oxycodone Screen (Negative) Urine Methadone Screen (Negative) Ur Barbiturates Screen (Negative) U Tricyclic Antidepress (Negative) Ur Phencyclidine Scrn (Negative) Ur Amphetamines Screen (Negative) U Methamphetamines Scrn (Negative) Ur MDMA Scrn (Ecstasy) (Negative) U Benzodiazepines Scrn (Negative) Urine Cocaine Screen (Negative) U Marijuana (THC) Screen (Negative) SARS-CoV-2 (PCR) Negative (Negative) <Aretha Posada MD - Last Filed: 02/09/21 05:56> Medical Records Attestation: I reviewed the patient's medical records. Lab Data Attestation: I reviewed the patient's lab results. Labs: Lab Results 02/08/21 02/08/21 02/08/21 Range/Units 16:03 16:03 17:30 WBC 5.8 (4.5-11.0) X10^3/uL RBC 4.64 (4.5-5.9) X10^6/uL Hgb 13.9 (13.5-17.5) g/dL Hct 40.6 L (41-53) % MCV 87.5 (80-100) fL MCH 30.1 (26-34) PG MCHC 34.3 (30-36) % RDW 13.2 (11.6-14.8) % Plt Count 201 (150-400) X10^3/uL Neut % (Auto) 68.0 (50-75) % Lymph % (Auto) 23.7 L (25-40) % [place] % (Auto) 6.2 (3-14) % Eos % (Auto) 1.5 L (2-4) % Baso % (Auto) 0.6 (0-2) % Neut # (Auto) 4000 (2796-4646) /uL Lymph # (Auto) 1400 (9248-1754) /uL [place] # (Auto) 400 (0-900) /uL Eos # (Auto) 100 (0-450) /uL Baso # (Auto) 0 (0-100) /uL Sodium 139 (137-145) mmol/L Potassium 3.9 (3.4-5.1) mmol/L Chloride 107 (98-107) mmol/L Carbon Dioxide 25 (22-32) mmol/L BUN 13 (9-20) mg/dL Creatinine 0.94 (0.66-1.25) mg/dL Estimated GFR > 60.0 (>60) mL/min BUN/Creatinine Ratio 13.8 (6-22) Glucose 85 (70-100) mg/dL Calcium 9.0 (8.4-10.2) mg/dL Total Bilirubin 0.7 (0.2-1.3) mg/dL AST 25 (17-59) IU/L ALT 17 (<50) IU/L Alkaline Phosphatase 34 L (38-126) U/L Total Protein 6.8 (6.3-8.2) g/dL Albumin 4.0 (3.5-5.0) g/dL Globulin 2.8 (1.7-4.1) g/dL Albumin/Globulin Ratio 1.4 (1.0-2.8) Urine Color Urine Appearance Urine pH (4.5-8.0) Ur Specific [place] (1.000-1.035) Urine Protein (Negative) Urine Glucose (UA) (Negative) g/dL Urine Ketones (NEGATIVE) Urine Occult Blood (Negative) Urine Nitrate (Negative) Urine Bilirubin (NEGATIVE) Urine Urobilinogen (0.2) E.U./dL Ur Leukocyte Esterase (NEGATIVE) Urine RBC (0-5/HPF) Urine WBC (0-5/HPF) Urine Bacteria (None) Urine Sperm Ur Culture Indicated? U Opiates 300ng/mL cut Negative (Negative) Ur Oxycodone Screen Negative (Negative) Urine Methadone Screen Negative (Negative) Ur Barbiturates Screen Negative (Negative) U Tricyclic Antidepress Negative (Negative) Ur Phencyclidine Scrn Negative (Negative) Ur Amphetamines Screen Negative (Negative) U Methamphetamines Scrn Negative (Negative) Ur MDMA Scrn (Ecstasy) Negative (Negative) U Benzodiazepines Scrn Positive H (Negative) Urine Cocaine Screen Negative (Negative) U Marijuana (THC) Screen Negative (Negative) SARS-CoV-2 (PCR) (Negative) 02/08/21 02/09/21 Range/Units 17:30 01:03 WBC (4.5-11.0) X10^3/uL RBC (4.5-5.9) X10^6/uL Hgb (13.5-17.5) g/dL Hct (41-53) % MCV (80-100) fL MCH (26-34) PG MCHC (30-36) % RDW (11.6-14.8) % Plt Count (150-400) X10^3/uL Neut % (Auto) (50-75) % Lymph % (Auto) (25-40) % [place] % (Auto) (3-14) % Eos % (Auto) (2-4) % Baso % (Auto) (0-2) % Neut # (Auto) (0866-4543) /uL Lymph # (Auto) (7200-2363) /uL [place] # (Auto) (0-900) /uL Eos # (Auto) (0-450) /uL Baso # (Auto) (0-100) /uL Sodium (137-145) mmol/L Potassium (3.4-5.1) mmol/L Chloride (98-107) mmol/L Carbon Dioxide (22-32) mmol/L BUN (9-20) mg/dL Creatinine (0.66-1.25) mg/dL Estimated GFR (>60) mL/min BUN/Creatinine Ratio (6-22) Glucose (70-100) mg/dL Calcium (8.4-10.2) mg/dL Total Bilirubin (0.2-1.3) mg/dL AST (17-59) IU/L ALT (<50) IU/L Alkaline Phosphatase (38-126) U/L Total Protein (6.3-8.2) g/dL Albumin (3.5-5.0) g/dL Globulin (1.7-4.1) g/dL Albumin/Globulin Ratio (1.0-2.8) Urine Color Yellow Urine Appearance Clear Urine pH 6.5 (4.5-8.0) Ur Specific [place] 1.015 (1.000-1.035) Urine Protein Negative (Negative) Urine Glucose (UA) Negative (Negative) g/dL Urine Ketones Negative (NEGATIVE) Urine Occult Blood Trace-lysed (Negative) Urine Nitrate Negative (Negative) Urine Bilirubin Negative (NEGATIVE) Urine Urobilinogen 0.2 (0.2) E.U./dL Ur Leukocyte Esterase Negative (NEGATIVE) Urine RBC 0-1/hpf (0-5/HPF) Urine WBC None seen (0-5/HPF) Urine Bacteria None seen (None) Urine Sperm Occasional Ur Culture Indicated? Cult not indicated U Opiates 300ng/mL cut (Negative) Ur Oxycodone Screen (Negative) Urine Methadone Screen (Negative) Ur Barbiturates Screen (Negative) U Tricyclic Antidepress (Negative) Ur Phencyclidine Scrn (Negative) Ur Amphetamines Screen (Negative) U Methamphetamines Scrn (Negative) Ur MDMA Scrn (Ecstasy) (Negative) U Benzodiazepines Scrn (Negative) Urine Cocaine Screen (Negative) U Marijuana (THC) Screen (Negative) SARS-CoV-2 (PCR) Negative (Negative) Imaging Data CT scan - head: Radiologist's Impression: FINDINGS: Image quality: Excellent. CSF spaces: Basal cisterns are patent. No extra-axial fluid collections. Ventricles are normal in size and shape. Brain: No midline shift. No intracranial masses or hemorrhage. Lange-white matter interface is normal. Skull and face: Calvarium and visualized facial bones are intact, without suspicious lesions. Sinuses: A mucous retention cyst or polyp is seen in the left frontal sinus. The remaining visualized paranasal sinuses and the mastoid air cells are clear. IMPRESSION: 1. No acute intracranial abnormality. Consider MRI of the brain for further evaluation when feasible. 2. Mucous retention cyst or polyp in the left frontal sinus. Dictated by: Jac Cardenas M.D. on 02/07/2021 at 18:05 MDM Narrative Medical decision making narrative: 26-year-old gentleman with a history of seizure disorder for the last 5 years. Has been on zonisamide with some success in controlling seizures until he developed anger issues. And tried Keppra and had side effects that he did not like. Seem to have a lung. Of seizure-free time without medications. Presents twice in the last 48 hours with recurrent seizures that continue to increase in frequency. Seizures are typically brief, tonic-clonic with brief postictal. And does return to normal cognitive function between seizures. He was initially treated with IV Keppra and hospitalization was attempted but no beds were available he was state felt to be safe for home discharge. Returned after having multiple seizures after being sent home. Was given multiple benzodiazepines higher dose of Keppra. Seizure seem to slow and again beds were not immediately available so he was boarding in the ER until beds were available. He was given his evening dose of zonisamide and then proceeded to have increasing number of seizures lasting anywhere from 15-90 seconds with complete recovery in between and maintained airway. He was given additional doses of Versed with continued seizure activity and then given a g of IV fosphenytoin. With the addition of this final seizure medication he has remained seizure-free for air lift transfer to [facility] for further evaluation and treatment uncontrolled seizures. <Aretha Posada MD - Last Filed: 02/09/21 05:56> Critical Care Time Critical Care Time: Yes Total Critical Care Time: 146 Attestation: Critical care time is separate from other billable procedures. This critical care time includes consultation with family and other consulting doctors, review of records, and interpretation of data from labs, EKGs and imaging as well as managements of continued active seizure management in the department and extended time discussing care treatment plan and disposition with multiple consultants at multiple different hospitals due to critical bed shortage is in the area. Discharge Plan Departure Patient Disposition: [facility] Clinical Impression: Epileptic seizure Qualifiers: Epilepsy type: unspecified Intractability: intractable Status epilepticus: without status epilepticus Qualified Code(s): G40.919 - Epilepsy, unspecified, intractable, without status epilepticus Prescriptions: No Action zonisamide 100 mg capsule 100 mg PO DAILY Qty: 60 RF: 0 Referrals: Gerri Dunn ARNP [Primary Care Provider] -
[2021-02-08] MEDS: LORazepam 2 MG/ML INJ ×3 (16:10→23:37)
[2021-02-08] MEDS: SODIUM CHLORIDE 0.9% 1,000 ML 1000 ML IV (16:12)
[2021-02-08] MEDS: levETIRAcetam 1,000 MG in SODIUM CHLORIDE 0.9% 100 ML 440 ML IV (16:13)
[2021-02-08 16:32] LABS: Add Manual Diff / Slide Review NO; Basophils Absolute Auto 0 /uL (0-100); Basophils Percent Auto 0.6 % (0-2); Eosinophils Absolute Auto 100 /uL (0-450); Eosinophils Percent Auto 1.5 % (2-4); Hematocrit 40.6 % (41-53); Hemoglobin 13.9 g/dL (13.5-17.5); Lymphocytes Absolute Auto 1400 /uL (1100-4500); Lymphocytes Percent Auto 23.7 % (25-40); Mean Corpuscular HGB Conc 34.3 % (30-36); Mean Corpuscular Hemoglobin 30.1 PG (26-34); Mean Corpuscular Volume 87.5 fL (80-100); Monocytes Absolute Auto 400 /uL (0-900); Monocytes Percent Auto 6.2 % (3-14); Neutrophils Absolute Auto 4000 /uL (1500-7000); Platelet Count 201 X10^3/uL (150-400); Red Blood Cell Count 4.64 X10^6/uL (4.5-5.9); Red Cell Distribution Width 13.2 % (11.6-14.8); White Blood Cell Count 5.8 X10^3/uL (4.5-11.0)
[2021-02-08] MEDS: ONDANSETRON 4 MG/2 ML INJ IV (16:33)
[2021-02-08 16:36] LABS: Alanine Aminotransferase 17 IU/L (<50); Albumin Globulin Ratio 1.4 (1.0-2.8); Alkaline Phosphatase 34 U/L (38-126); Aspartate Aminotransferase 25 IU/L (17-59); BUN Creatinine Ratio 13.8 (6-22); Bilirubin Total 0.7 mg/dL (0.2-1.3); Blood Urea Nitrogen 13 mg/dL (9-20); Carbon Dioxide 25 mmol/L (22-32); Chloride 107 mmol/L (98-107); Estimated Glomerular Filt Rate > 60.0 mL/min (>60); Globulin 2.8 g/dL (1.7-4.1); Glucose 85 mg/dL (70-100); HEMOLYSIS 34 (0-50); Potassium 3.9 mmol/L (3.4-5.1); Sodium 139 mmol/L (137-145); Total Protein 6.8 g/dL (6.3-8.2)
[2021-02-08] MEDS: diazePAM 10 MG/2 ML SYRINGE (16:39)
--- NOTE | 2021-02-08 17:00 | PC.NURSE ---
Pt has been having seizures times 3 since arrival. All tonic-colonic with short postictal phase lasting 30-40 min.
[2021-02-08] MEDS: LEVETIRACETAM IV (17:24)
[2021-02-08] MEDS: SODIUM CHLORIDE 0.9% IV (17:24)
[2021-02-08] MEDS: diazePAM 10 MG/2 ML SYRINGE IV (17:28)
[2021-02-08] MEDS: SODIUM CHLORIDE 0.9% 1,000 ML 150 ML IV ×2 (17:38→20:00)
--- NOTE | 2021-02-08 17:42 | PC.NURSE ---
Pt had seizure lasting 30 seconds, short postictal period 5 min. at 1615 Pt had seizure lasting 45 seconds, short postictal phase 10 min at 1655 Pt had seizure lasting 1 min, short postictal phase 10 min at 1720
[2021-02-08 17:48] LABS: UR Morphine/Opiate cutoff 300 Negative (Negative); Ur Creatinine Normal (Normal); Ur Specific Gravity Normal (Normal); Urine Amphetamines Negative (Negative); Urine Barbiturates Negative (Negative); Urine Benzodiazepines Positive (Negative); Urine Cocaine Negative (Negative); Urine MDMA Negative (Negative); Urine Methadone Negative (Negative); Urine Methamphetamines Negative (Negative); Urine Oxycodone Negative (Negative); Urine Phencyclidine Negative (Negative); Urine Tetrahydrocannabinol Negative (Negative); Urine Tricyclic Antidepressant Negative (Negative); Urine pH Normal (Normal)
[2021-02-08 18:46] LABS: Bacteria Urine None Seen; WBC Urine None Seen (0-5/HPF)
[2021-02-08 18:47] LABS: Appearance Urine UA CLEAR; Bilirubin Urine UA NEGATIVE (NEGATIVE); Color Urine UA YELLOW; Glucose Urine UA NEGATIVE (Negative); Ketones Urine UA NEGATIVE (NEGATIVE); Leukocyte Esterase Urine UA NEGATIVE (NEGATIVE); Nitrite Urine UA NEGATIVE (Negative); Occult Blood Urine UA TRACE-LYSED (Negative); Protein Urine UA NEGATIVE (Negative); Specific Gravity Urine UA 1.015 (1.000-1.035); Urobilinogen Urine UA 0.2 E.U./dL (0.2); pH Urine UA 6.5 (4.5-8.0)
[2021-02-08 19:01] LABS: Culture Indicated Urine Cult Not Indicated; RBC Urine 0-1/HPF (0-5/HPF); Sperm Urine Occasional
[2021-02-08] MEDS: ZONISAMIDE 100 MG CAPSULE PO (22:01)
--- NOTE | 2021-02-08 22:34 | PC.NURSE ---
2234, Pt had seizure lasting approx 15 seconds.
--- NOTE | 2021-02-08 22:39 | PC.NURSE ---
Pt had seizure lasting 45 sec.
--- NOTE | 2021-02-08 23:03 | PC.NURSE ---
Pt had seizure at 2302, lasting 70sec.
--- NOTE | 2021-02-08 23:05 | PC.NURSE ---
Answered call light and patient stated that he felt as if he was going to seize. Stayed with patient for a few minutes. Pt appeared to have a seizer like episode. It lasted around 1 minute. RN was in the room timing and monitoring.
--- NOTE | 2021-02-08 23:34 | PC.NURSE ---
2333,Pt had seizure lasting 75 sec, 2335 seized again lasting 45 sec
--- NOTE | 2021-02-08 23:44 | PC.NURSE ---
2344 seizure lasting 65sec.
[2021-02-09] VITALS: PULSE 125; RESP 25; O2SAT 99
--- NOTE | 2021-02-09 00:05 | PC.NURSE ---
Entered into patient's room after he used the call light. Stated that he felt a seizure coming on. Stayed with the patient for approximately 20 minutes. During that time, patient appeared to have seizure like episodes that lasted 45 second, 65 seconds, and a third that lasted about 50 seconds. Rn notified.
[2021-02-09] MEDS: MIDAZOLAM 2 MG/2 ML VIAL 5 MG IV (00:10)
[2021-02-09 00:30] VITALS: BP 99/56; PULSE 90; RESP 25; O2SAT 96
--- NOTE | 2021-02-09 00:46 | PC.NURSE ---
0044 pt had seizure lasting 75 secs.
--- NOTE | 2021-02-09 00:48 | PC.NURSE ---
0047, seizure lasting 30 secs.
[2021-02-09 01:00] VITALS: BP 108/63; PULSE 98; RESP 29; O2SAT 97
--- NOTE | 2021-02-09 01:09 | PC.NURSE ---
Went into patient's room to check on him and he started to have a seizure like activity. The activity lasted 95 seconds. Patient now talking and aware. Rn notified.
[2021-02-09] MEDS: MIDAZOLAM 5 MG/ML VIAL IM (01:13)
[2021-02-09 01:30] VITALS: BP 83/53; PULSE 82; RESP 16; O2SAT 98
--- NOTE | 2021-02-09 01:49 | PC.NURSE ---
At aprrox 0135 pt had 90 sec seizure, at 0147 seized for 45 sec, at 0149 seized for 40 sec.
[2021-02-09 01:53] LABS: COVID19 -Nasal RAPID Negative (Negative)
[2021-02-09] MEDS: FOSPHENYTOIN 1,000 MG in SODIUM CHLORIDE 0.9% 100 ML 240 ML IV (01:58)
[2021-02-09 02:00] VITALS: BP 103/57; PULSE 81; RESP 22; O2SAT 97
== END 2021-02-09 02:40 | disposition short-term general hospital (02) ==
PROVIDERS: Emergency Medicine; Emergency Provider Emergency Medicine; PCP Internal Medicine
DX: G40.919 Epilepsy, unspecified, intractable, without status epilepticus (principal); Z20.822 Contact with and (suspected) exposure to COVID-19
CPT/HCPCS: 80053; 80305; 81001; 85025; 87635; 93005; 93010; 96361; 96365; 96367; 96372; 96375; 96376; 99284; 99291; 99292; C9803; J1953; J2060; J2250; J2405; J3360; Q2009

== ENCOUNTER 2021-03-06 16:19 | Emergency (ER) | payer BC, SELFPAY ==
[2021-03-06 17:06] VITALS: BP 126/70; PULSE 84; RESP 16; TEMP 36.3; O2SAT 97; BMI 15.5
--- NOTE | 2021-03-06 18:35 | ED_ITS ---
HPI - GI Bleed General Chief complaint: GI Bleed Stated complaint: REALLY BAD HEMORRHOID Time Seen by Provider: 03/06/21 18:08 Source: patient Mode of arrival: Ambulatory Limitations: no limitations History of Present Illness HPI Narrative: 26-year-old gentleman with a history of Marfan syndrome and seizures presents with severe rectal pain that is been present for approximately 4 days. He has had intermittent trouble with hemorrhoids and constipation but has never had this degree of pain. He is finding that he is having trouble standing for 10 hours to complete a work shift due to the pain. He has been usi ng some preparation H as well as cold compresses. He describes no overt bleeding, abdominal pain, nausea, vomiting or diarrhea. Related Data Previous Rx's Medication Instructions Recorded zonisamide 100 mg PO DAILY #60 cap 02/07/21 hydrocortisone acetate [Anusol-HC] 25 mg VT BID #24 ea 03/06/21 polyethylene glycol 3350 17 g PO DAILY #238 g 03/06/21 Allergies Allergy/AdvReac Type Severity Reaction Status Date / Time prochlorperazine AdvReac Severe Agitated Verified 02/07/21 17:24 [From Compazine] Review of Systems Review of Systems Narrative: Remainder of complete review of systems is otherwise unremarkable except for that included in the HPI. Patient History Medical History Marfans syndrome Seizure Social History Smoking Status: Never smoker Smoking Status: Never smoker tobacco type: vaping alcohol intake frequency: 0-2 drinks per day Substance Use Type: does not use Exam Narrative Exam Narrative: General: Alert appropriate in no acute distress Respiratory: Able to speak in full sentences, no obvious respiratory distress Skin: No obvious rashes, warm and dry Neurologic: Grossly intact no obvious asymmetries or abnormalities Psych: appropriate insight and affect, cooperative Rectal exam: He has an approximately 4 mm sized thrombosed external hemorrhoid at the 9:00 position of the anus. He is exquisitely tender and I suspect that he also has some internal hemorrhoids. Initial Vital Signs Initial Vital Signs: Vital Signs Temperature 97.4 F L 03/06/21 17:06 Pulse Rate 84 03/06/21 17:06 Respiratory Rate 16 03/06/21 17:06 Blood Pressure 126/70 03/06/21 17:06 Pulse Oximetry 97 03/06/21 17:06 Course Orders Ordered: Discontinued Medications Lidocaine/Prilocaine (Lidocaine/Prilocaine 5 Gm) 5 gm TOP NOW ONE Stop: 03/06/21 18:29 Vital Signs Vital signs: Vital Signs - 8 hr 03/06/21 17:06 Temperature 97.4 F L Pulse Rate 84 Respiratory Rate 16 Blood Pressure 126/70 Pulse Oximetry 97 MDM - GI Bleed MDM Narrative Medical decision making narrative: 26-year-old man with a small thrombosed external hemorrhoid with significant pain. The current thrombosis is small enough that I do not think that trying to excise it will be beneficial. 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 If things worsen he will return otherwise he is safe for home discharge Discharge Plan Departure Patient Disposition: Home Clinical Impression: Hemorrhoids, external, thrombosed Instructions: DI for Hemorrhoids Activity Restrictions/Additional Instructions: Thank you for coming in today You have the thrombosed hemorrhoid that is causing this severe pain. At this time, the blood clot(thrombosis) is about the size of a pea. I do not think that it is worth trying to extract the blood clot. I have given you some topical anesthetic that can be helpful intermittently. I have also given you some Anusol each see suppositories. These are inserted all the way into your rectum and help reduce some of the swelling in tenderness from the internal hemorrhoids to prevent the external hemorrhoid thrombosis getting bigger. Sitz baths (soaking the area) can be helpful sometimes in controlling the pain as well. Preventing constipation will be important in avoiding further hemorrhoids. If you have worsening problems please feel free to return for further evaluation. Prescriptions: New hydrocortisone acetate [Anusol-HC] 25 mg suppository 25 mg VT BID Qty: 24 RF: 0 polyethylene glycol 3350 17 gram/dose powder 17 g PO DAILY Qty: 238 RF: 0 No Action zonisamide 100 mg capsule 100 mg PO DAILY Qty: 60 RF: 0 Referrals: Gerri Dunn ARNP [Primary Care Provider] -
[2021-03-06] MEDS: LIDOCAINE/PRILOCAINE 5 GM TOP (18:38)
== END 2021-03-06 18:45 | disposition home or self-care (01) ==
PROVIDERS: Emergency Provider Emergency Medicine; PCP Internal Medicine
DX: K64.5 Perianal venous thrombosis (principal)
CPT/HCPCS: 99282

== ENCOUNTER 2021-09-11 16:00 | Emergency (ER) | payer BC, SELFPAY ==
[2021-09-11] VITALS (10 sets, daily range): BP systolic 111–141; BP diastolic 56–75; PULSE 66–109; RESP 14–21; TEMP 36.9; O2SAT 83–100; BMI 16.2
--- NOTE | 2021-09-11 16:14 | DI.RAD.S_ITS ---
PROCEDURE: XR CHEST 1V INDICATIONS: chest pain TECHNIQUE: One view of the chest was acquired. COMPARISON: None. FINDINGS: Surgical changes and devices: Extensive thoracic fusion hardware. Lungs and pleura: Lungs are clear. No pleural effusions or pneumothorax. Mediastinum: Mediastinal contours appear normal. Heart size is normal. Bones and chest wall: No suspicious bony lesions. Overlying soft tissues appear unremarkable. IMPRESSION: No acute cardiopulmonary process demonstrated radiographically. Dictated by: Earl Elizalde M.D. on 09/11/2021 at 16:31 Approved by: Earl Elizalde M.D. on 09/11/2021 at 16:31
[2021-09-11 16:36] LABS: COVID19 -Nasal RAPID Negative (Negative)
[2021-09-11 16:48] LABS: Add Manual Diff / Slide Review NO; Basophils Absolute Auto 100 /uL (0-100); Basophils Percent Auto 0.8 % (0-2); Eosinophils Absolute Auto 200 /uL (0-450); Eosinophils Percent Auto 2.8 % (2-4); Hematocrit 44.7 % (41-53); Hemoglobin 15.4 g/dL (13.5-17.5); Lymphocytes Absolute Auto 2100 /uL (1100-4500); Lymphocytes Percent Auto 30.1 % (25-40); Mean Corpuscular HGB Conc 34.4 % (30-36); Mean Corpuscular Volume 87.2 fL (80-100); Monocytes Absolute Auto 400 /uL (0-900); Neutrophils Absolute Auto 4200 /uL (1500-7000); Neutrophils Percent Auto 60.3 % (50-75); Platelet Count 232 X10^3/uL (150-400); Red Blood Cell Count 5.13 X10^6/uL (4.5-5.9)
[2021-09-11 17:04] LABS: Alanine Aminotransferase 19 IU/L (<50); Albumin Globulin Ratio 1.6 (1.0-2.8); Alkaline Phosphatase 43 U/L (38-126); Aspartate Aminotransferase 27 IU/L (17-59); BUN Creatinine Ratio 12.1 (6-22); Bilirubin Total 0.6 mg/dL (0.2-1.3); Blood Urea Nitrogen 12 mg/dL (9-20); Calcium 10.3 mg/dL (8.4-10.2); Carbon Dioxide 33 mmol/L (22-32); Chloride 101 mmol/L (98-107); Creatine Kinase 91 U/L (55-170); Estimated Glomerular Filt Rate > 60.0 mL/min (>60); Globulin 3.2 g/dL (1.7-4.1); Glucose 134 mg/dL (70-100); HEMOLYSIS < 15 (0-50); Lipase 115 U/L (23-300); Magnesium 2.1 mg/dL (1.6-2.3); Potassium 4.5 mmol/L (3.4-5.1); Sodium 142 mmol/L (137-145); Total Protein 8.2 g/dL (6.3-8.2)
[2021-09-11 17:15] LABS: Troponin I < 0.012 ng/mL (0.01-0.034)
--- NOTE | 2021-09-11 17:21 | DI.CT.S_ITS ---
PROCEDURE: CT ANGIO CHEST ABDOMEN PELVIS INDICATIONS: Marfan's. Chest pain. TECHNIQUE: Precontrast 5 mm thick sections acquired from the lung apices to the iliac crests. After the administration of intravenous contrast, 2.5 mm thick sections again acquired from the lung apices to the iliac crests. Maximum intensity projection (MIP) oblique sagittal and coronal reformats were then acquired. For radiation dose reduction, the following was used: automated exposure control. COMPARISON: None. FINDINGS: Image quality: Excellent. AORTA: Normal. CHEST: Lungs and pleura: No acute airspace opacity. No significant pleural abnormality. Mediastinum: Normal heart size. Small pericardial effusion. Normal caliber main pulmonary trunk. No mediastinal lymphadenopathy or hilar lymphadenopathy. Bones and chest wall: No axillary lymphadenopathy. Pectus excavatum. Uniform thyroid gland attenuation. ABDOMEN: Solid organs: Normal CT appearance of the liver, spleen, pancreas, gallbladder, adrenal glands, and kidneys. Peritoneum and bowel: No acute enteric process demonstrated. Nodes and vessels: IVC within normal limits. Abdominal visceral vasculature opacifies normally. No intra-abdominal or retroperitoneal lymphadenopathy. Miscellaneous: No ventral hernias. PELVIS: Genitourinary: Bladder wall thickness is normal. Prostate normal in appearance. Miscellaneous: No no pelvic or inguinal lymphadenopathy. Bones: No suspicious bony lesions. No vertebral body compression fractures. IMPRESSION: Pectus excavatum. Small pericardial effusion. Otherwise normal Normal study. Dictated by: Earl Elizalde M.D. on 09/11/2021 at 18:30 Approved by: Earl Elizalde M.D. on 09/11/2021 at 18:33
--- NOTE | 2021-09-11 17:27 | ED_ITS ---
HPI - Chest Pain General Chief Complaint: Chest Pain Stated Complaint: SOB/CHEST PAIN Time Seen by Provider: 09/11/21 16:40 Source: patient Mode of arrival: Ambulatory Limitations: no limitations History of Present Illness HPI narrative: The patient has experienced central sternal chest pain/ upper abdominal pain for 3 days. He has had mild rhinorrhea, no sore throat or fever. No cough. He has a history of asthma as a child, not now. He vapes. He has no need for inhalers. He denies recent illness. He has Marfan's, pectus excavatum, and martin rods in place. He does not feel he has been ill recently. He has had no trauma. CT of his chest 08/20/2020 noted a normal aorta, there were no vascular abnormalities. Although his discomfort seems also be abdominal, he has no chronic GI issues. He has no nausea vomiting or anorexia associated with epigastric pain. Related Data Previous Rx's Medication Instructions Recorded zonisamide 100 mg capsule 100 mg PO DAILY #60 cap 02/07/21 hydrocortisone acetate 25 mg 25 mg [place] BID #24 ea 03/06/21 rectal suppository (Anusol-HC) polyethylene glycol 3350 17 17 g PO DAILY #238 g 03/06/21 gram/dose oral powder omeprazole magnesium 20 mg 20 mg PO DAILY #30 tab 09/11/21 tablet,delayed release (Prilosec OTC) Allergies Allergy/AdvReac Type Severity Reaction Status Date / Time prochlorperazine AdvReac Severe Agitated Verified 02/07/21 17:24 [From Compazine] Review of Systems Constitutional Constitutional: Denies chills, Denies fatigue, Denies fever(s), Reports poor appetite and Denies weakness Eyes Eyes: Denies blurry vision and Denies change in vision ENT Ears, Nose, Mouth, and Throat: Denies dizziness, Denies odynophagia, Denies sinus pressure and Denies sore throat Cardiovascular Cardiovascular: Reports as per HPI, Reports chest pain, Denies syncope, Denies rapid heart rate, Denies leg edema and Denies dyspnea Respiratory Respiratory: Denies cough and Denies dyspnea Gastrointestinal Gastrointestinal: Reports abdominal pain, Denies nausea, Denies odynophagia and Denies vomiting Genitourinary Comments: No complaints. Musculoskeletal Musculoskeletal: Denies arthralgias, Denies back pain and Denies myalgias Integumentary/Breasts Skin/Breast: Denies lesions and Denies rash Neurologic Neurologic: Denies confusion, Denies dizziness, Denies syncope and Denies weakness Psychiatric Psychiatric: Denies confusion Endocrine Endocrine: Denies fatigue Hematologic/Lymphatic On Anticoagulants: No Patient History Medical History (Updated 09/11/21 @ 19:31 by Ford Otero MD) Marfans syndrome Pectus excavatum Scoliosis Seizure Surgical History (Updated 09/11/21 @ 19:23 by Ford Otero MD) Status post thoracic spinal fusion Social History Smoking Status: Current every day smoker Smoking Status: Current every day smoker tobacco type: vaping alcohol intake frequency: 0-2 drinks per day Substance Use Type: does not use Exam Initial Vital Signs Initial Vital Signs: Vital Signs Temperature 98.5 F 09/11/21 16:05 Pulse Rate 109 H 09/11/21 16:05 Respiratory Rate 20 09/11/21 16:05 Blood Pressure 141/64 H 09/11/21 16:05 Pulse Oximetry 99 09/11/21 16:05 Const General: cooperative, comfortable and No in distress Orientation: Orientation (X3) [facility] Head: normocephalic and atraumatic Throat: posterior oropharynx normal Eyes General: appearance normal, both eyes and all related structures Neck Neck: full ROM and No JVD Thyroid: thyroid normal Chest Other: Pectus excavatum. Slight tenderness along the left sternal border. No crepitus. No evidence of injury. Resp Effort & Inspection: normal respiratory effort Auscultation: clear to auscultation bilaterally Cardio Rate: regular rate Rhythm: regular rhythm Heart Sounds: S1 normal, S2 normal, no click, no gallops and no murmurs GI Inspection: normal to inspection Other: Epigastric tenderness. No distension. No masses. No guarding or rebound. Back/Spine/Pelvis Back: normal to inspection Skin General: no rashes or lesions noted Neuro General: patient alert, patient awake, patient oriented x3 and no focal motor deficits Extrem General: normal to inspection, full ROM, no pedal edema and no calf tenderness Psych Mental Status: mental status grossly normal Course Course Course Narrative: Given the patient's history of Marfan's, and his chest/abdomen discomfort, aortic dissection was a concern. CT has not revealed any aortic abnormalities. EKG and labs are reassuring. There is no ACS. He has epigastric pain, this was treated with Protonix. I suspect his stomach is the source of discomfort. He is doing well clinically, he will discharged on Prilosec advised follow-up with his PCM. Orders Ordered: ED Orders 09/11/21 16:14 XR chest 1V Stat EKG-12 Lead Stat 09/11/21 16:16 COVID19 -Nasal swab/Pre-Proc Stat 09/11/21 16:30 Complete Blood Count AUTO DIFF Stat Comprehensive Metabolic Panel Stat Lipase Stat Magnesium Stat Troponin & CK Cardiac Panel Stat 09/11/21 17:21 CT angio chest abdomen pelvis Stat Sodium Chloride (Normal Saline 0.9%) 1,000 mls @ 1,000 mls/hr IV BOLUS ONE Stop: 09/11/21 19:36 Last Admin: 09/11/21 18:53 Dose: 1,000 mls/hr Documented by: Discontinued Medications Pantoprazole Sodium (Pantoprazole 40 Mg Vial) 40 mg IV NOW ONE Stop: 09/11/21 18:38 Last Admin: 09/11/21 18:50 Dose: 40 mg Documented by: Vital Signs Vital signs: Vital Signs - 8 hr 09/11/21 16:05 09/11/21 19:04 Temperature 98.5 F Pulse Rate 109 H 70 Respiratory Rate 20 16 Blood Pressure 141/64 H 120/65 Pulse Oximetry 99 98 MDM - Chest Pain Lab Data Result diagrams: 09/11/21 16:30 09/11/21 16:30 Labs: Lab Results 09/11/21 09/11/21 09/11/21 Range/Units 16:16 16:30 16:30 WBC 7.0 (4.5-11.0) X10^3/uL RBC 5.13 (4.5-5.9) X10^6/uL Hgb 15.4 (13.5-17.5) g/dL Hct 44.7 (41-53) % MCV 87.2 (80-100) fL MCH 30.0 (26-34) PG MCHC 34.4 (30-36) % RDW 13.0 (11.6-14.8) % Plt Count 232 (150-400) X10^3/uL Neut % (Auto) 60.3 (50-75) % Lymph % (Auto) 30.1 (25-40) % [facility] % (Auto) 6.0 (3-14) % Eos % (Auto) 2.8 (2-4) % Baso % (Auto) 0.8 (0-2) % Neut # (Auto) 4200 (5158-2911) /uL Lymph # (Auto) 2100 (1991-7159) /uL [facility] # (Auto) 400 (0-900) /uL Eos # (Auto) 200 (0-450) /uL Baso # (Auto) 100 (0-100) /uL Sodium 142 (137-145) mmol/L Potassium 4.5 (3.4-5.1) mmol/L Chloride 101 (98-107) mmol/L Carbon Dioxide 33 H (22-32) mmol/L BUN 12 (9-20) mg/dL Creatinine 0.99 (0.66-1.25) mg/dL Estimated GFR > 60.0 (>60) mL/min BUN/Creatinine Ratio 12.1 (6-22) Glucose 134 H (70-100) mg/dL Calcium 10.3 H (8.4-10.2) mg/dL Magnesium 2.1 (1.6-2.3) mg/dL Total Bilirubin 0.6 (0.2-1.3) mg/dL AST 27 (17-59) IU/L ALT 19 (<50) IU/L Alkaline Phosphatase 43 (38-126) U/L Total Creatine Kinase 91 (55-170) U/L CK-MB (CK-2) TNP CK-MB (CK-2) Rel Index TNP Troponin I < 0.012 (0.01-0.034) ng/mL Total Protein 8.2 (6.3-8.2) g/dL Albumin 5.0 (3.5-5.0) g/dL Globulin 3.2 (1.7-4.1) g/dL Albumin/Globulin Ratio 1.6 (1.0-2.8) Lipase 115 (23-300) U/L SARS-CoV-2 (PCR) Negative (Negative) Urine Dip Bedside Urine Glucose Negative Bedside Urine Bilirubin - Negative Bedside Urine Ketone - Negative Urine Specific Thompson 1.010 Bedside Urine Occult Blood +/- Bedside Urine pH 7.5 Bedside Urine Protein - Negative Bedside Urine Urobilinogen 0.2 Bedside Urine Nitrite - Negative Bedside Urine Leukocytes - Negative Esterase Imaging Data Chest x-ray: Radiologist's Impression: No acute cardiopulmonary process. CT angio chest, abdomen pelvis: Radiologist's Impression: Launch?[address] [address] [address] Scan Report Signed Patient: Александр Resendiz MR#: [id number] : 1995 Acct:[id number] Age/Sex: 26 / M Date of Service: 09/11/21 Loc: ED Accession Number: [id number] ?? Procedure: CT angio chest abdomen pelvis Ordering Provider: Ford Otero MD PROCEDURE:? CT ANGIO CHEST ABDOMEN PELVIS ? INDICATIONS:? Marfan's.? Chest pain. ? TECHNIQUE:? Precontrast 5 mm thick sections acquired from the lung apices to the iliac crests.? After the administration of intravenous contrast, 2.5 mm thick sections again acquired from the lung apices to the iliac crests.? Maximum intensity projection (MIP) oblique sagittal and coronal reformats were then acquired.? For radiation dose reduction, the follow ing was used:? automated exposure control.? ? COMPARISON:? None. ? FINDINGS:? Image quality:? Excellent.? ? AORTA:? Normal. ? CHEST:? Lungs and pleura:? No acute airspace opacity.? No significant pleural abnormality. ? Mediastinum:? Normal heart size.? Small pericardial effusion.? Normal caliber main pulmonary trunk.? No mediastinal lymphadenopathy or hilar lymphadenopathy. ? Bones and chest wall:? No axillary lymphadenopathy.? Pectus excavatum.? Uniform thyroid gland attenuation. ? ? ABDOMEN:? Solid organs:? Normal CT appearance of the liver, spleen, pancreas, gallbladder, adrenal glands, and kidneys. ? Peritoneum and bowel:? No acute enteric process demonstrated. ? Nodes and vessels:? IVC within normal limits.? Abdominal visceral vasculature opacifies normally.? No intra-abdominal or retroperitoneal lymphadenopathy. ? Miscellaneous:? No ventral hernias.? ? ? PELVIS:? Genitourinary:? Bladder wall thickness is normal.? Prostate normal in appearance. ? Miscellaneous:? No no pelvic or inguinal lymphadenopathy. ? Bones:? No suspicious bony lesions.? No vertebral body compression fractures.? ? ? IMPRESSION:? ? Pectus excavatum.? ? Small pericardial effusion.? ? Otherwise normal Normal study. ? ? ? Dictated by: Earl Elizalde M.D. on 09/11/2021 at 18:30 ? ? Approved by: Earl Elizalde M.D. on 09/11/2021 at 18:33?? ECG Data Attestation: I personally reviewed and interpreted this ECG as follows: (Normal sinus rhythm rate 95 beats per minute. Rightward axis. Incomplete RBBB. No ectopy. Nonspecific ST T wave changes.) Discharge Plan Departure Patient Disposition: Home Clinical Impression: Abdominal pain, acute, epigastric, Marfans syndrome, Chest pain Instructions: DI for Gastroesophageal Reflux Disease (GERD) Activity Restrictions/Additional Instructions: Prilosec 1 tablet daily. The prescription has been electronically forwarded to [facility] in [place]. You should initially be on a bland diet. If the medications help, advance her diet as tolerated. Follow-up with your doctor to review today's findings. Return here as necessary Prescriptions: New omeprazole magnesium [Prilosec OTC] 20 mg tablet,delayed release (DR/EC) 20 mg PO DAILY Qty: 30 1RF No Action zonisamide 100 mg capsule 100 mg PO DAILY Qty: 60 0RF Rx Instructions: Take 100mg Q HS x 5 days, then 200mg Q HS x 5 days, then 300mg Q HS hydrocortisone acetate [Anusol-HC] 25 mg suppository 25 mg NH BID Qty: 24 0RF polyethylene glycol 3350 17 gram/dose powder 17 g PO DAILY Qty: 238 0RF Referrals: Gerri Dunn ARNP [Primary Care Provider] -
[2021-09-11] MEDS: PANTOPRAZOLE 40 MG VIAL IV (18:50)
[2021-09-11] MEDS: SODIUM CHLORIDE 0.9% 1,000 ML 1000 ML IV (18:53)
--- NOTE | 2021-09-11 19:07 | PC.NURSE ---
Pt states he has Marfans Syndrome, aware
== END 2021-09-11 20:30 | disposition home or self-care (01) ==
PROVIDERS: Emergency Provider Emergency Medicine; PCP Internal Medicine
DX: R07.9 Chest pain, unspecified (principal); R10.13 Epigastric pain; Q87.40 Marfan syndrome, unspecified; Z20.822 Contact with and (suspected) exposure to COVID-19
CPT/HCPCS: 36415; 71045; 71275; 74174; 80053; 81003; 82550; 83690; 83735; 84484; 85025; 87635; 93005; 93010; 96361; 96374; 99284; C9803; C9113; Q9967

== ENCOUNTER 2022-11-09 10:08 | Observation (INO) | payer OTHER, SELFPAY ==
[2022-11-09] VITALS (10 sets, daily range): BP systolic 117–137; BP diastolic 68–78; PULSE 68–97; RESP 11–21; TEMP 36.6; O2SAT 97–100; BMI 16.2; BMI 16.7
--- NOTE | 2022-11-09 10:35 | DI.RAD.S_ITS ---
PROCEDURE: XR SOFT TISSUE NECK INDICATIONS: Throat pain TECHNIQUE: 2 views of the neck were acquired. COMPARISON: None. FINDINGS: Airway: The airway appears patent. Soft tissues: Prevertebral soft tissues are normal in thickness. The epiglottis and aryepiglottic folds appear normal. No soft tissue gas. Subglottic trachea is dilated on the lateral view. Bones: No suspicious bony lesions. Visualized cervical spine is normally aligned. Extensive thoracic spine orthopedic hardware. IMPRESSION: 1. The trachea appears quite prominent. This may potentially represent tracheomalacia in this patient. There is no prevertebral soft tissue swelling or soft tissue gas. Comment: Consider CT neck with contrast. Dictated by: Lobito Munson M.D. on 11/09/2022 at 11:03 Approved by: Lobito Munson M.D. on 11/09/2022 at 11:12
--- NOTE | 2022-11-09 10:36 | ED_ITS ---
HPI - Allergic Reaction General Chief complaint: Allergic Reaction Stated complaint: allergic reaction, difficulty swallowing Time Seen by Provider: 11/09/22 10:28 Source: patient Mode of arrival: Ambulatory History of Present Illness HPI narrative: Patient here for throat tightness and non itchy rash. This started last night. Patient took Benadryl at home and rash improved. However feels like something is caught in his throat. Continuing feel like he has to clear his throat. No trouble breathing. Denies denies any chest pain. Patient denies any recent changes or new habits or environment or medications or foods or detergents or soaps. Patient in no distress but is clearing his throat. No drooling. Related Data Previous Rx's Medication Instructions Recorded amoxicillin 875 mg-potassium 1 tab PO BID #14 tabs 11/09/22 clavulanate 125 mg tablet prednisone 10 mg tablet 60 mg PO DAILY #26 tabs 11/09/22 Allergies Allergy/AdvReac Type Severity Reaction Status Date / Time shrimp Allergy Verified 11/09/22 10:18 prochlorperazine AdvReac Severe Agitated Verified 11/09/22 10:18 [From Compazine] fluoxetine [From Prozac] AdvReac Verified 11/09/22 10:18 Review of Systems Review of Systems Narrative: GENERAL: negative chills, fatigue, malaise, fever, sweats. HEENT: negative sinus pain, ear pain, positive sore throat RESPIRATORY: negative dyspnea, cough CARDIOVASCULAR: negative chest pain, palpitations GASTROINTESTINAL: negative nausea, vomiting, abdominal pain : negative dysuria, frequency, hematuria MUSCULOSKELETAL: negative muscle or bony pain SKIN: Positive rash, skin lesions NEUROLOGIC: negative weakness, numbness ROS Unobtainable: All systems reviewed & are unremarkable except as noted in HPI and below Patient History Medical History Marfans syndrome Pectus excavatum Scoliosis Seizure Surgical History Status post thoracic spinal fusion Social History household members: significant other Smoking Status: Current every day smoker alcohol intake: current Smoking Status: Current every day smoker tobacco type: vaping alcohol intake frequency: 0-2 drinks per day Substance Use Type: does not use Exam Narrative Exam Narrative: GENERAL: in no distress, not toxic not dyspneic HEAD: Normocephalic. EYES: Pupils equal round ENT: Mucous membranes moist. No malocclusion or trismus or drooling, no tongue elevation. There is no pharyngeal or uvular edema swelling, no midline shift. Patient is speaking full sentences. NECK: Trachea midline. No stridor CARDIOVASCULAR: Regular rate and rhythm without murmurs RESPIRATORY: Clear to auscultation. Breath sounds equal bilaterally. No wheezes, rales, or rhonchi. GASTROINTESTINAL: Abdomen soft, non-tender EXTREMITIES: No gross deformities. BACK: No flank tenderness. NEURO: AOx4. SKIN: Warm and dry, small dark nonblanching papules on the arms, none on the face. Small amount on the chest and abdomen PSYCH: Not anxious, is cooperative Initial Vital Signs Initial Vital Signs: Vital Signs Temperature 98 F 11/09/22 10:15 Pulse Rate 96 H 11/09/22 10:15 Respiratory Rate 17 11/09/22 10:15 Blood Pressure 137/78 11/09/22 10:15 Pulse Oximetry 99 11/09/22 10:15 Oxygen Delivery Method 11/09/22 10:15 Course Orders Ordered: Discontinued Medications Acetaminophen (Acetaminophen 325 Mg Tablet) 650 mg PO Q6H PRN PRN Reason: Fever/Mild Pain (1-3) Famotidine (Famotidine 20 Mg/2 Ml Vial) 20 mg IV NOW YONI Last Admin: 11/09/22 11:09 Dose: 20 mg Documented By: RENNY Famotidine (Famotidine 20 Mg/2 Ml Vial) 20 mg IV BID [facility] Sodium Chloride (Normal Saline 0.9%) 1,000 mls @ 1,000 mls/hr IV BOLUS ONE Stop: 11/09/22 11:33 Last Infusion: 11/09/22 13:07 Dose: 0 mls/hr Documented By: Admin: 11/09/22 11:09 Dose: 1,000 mls/hr Documented By: RENNY Ceftriaxone Sodium 2,000 mg/ (Sodium Chloride) 100 mls @ 200 mls/hr IV NOW ONE Stop: 11/09/22 12:17 Last Infusion: 11/09/22 13:42 Dose: 0 mls/hr Documented By: Admin: 11/09/22 13:06 Dose: 200 mls/hr Documented By: ABIEL Ampicillin Sodium/Sulbactam (Sodium 3 gm/ Sodium Chloride) 100 mls @ 200 mls/hr IV Q6H [facility] Last Admin: 11/09/22 16:56 Dose: Not Given Documented By: ARIAN Ampicillin Sodium/Sulbactam (Sodium 3 gm/ Sodium Chloride) 100 mls @ 200 mls/hr IV Q6H [facility] Methylprednisolone (Methylprednisolone 125 Mg/2 Ml Vial) 125 mg IV NOW ONE Stop: 11/09/22 10:35 Last Admin: 11/09/22 11:08 Dose: 125 mg Documented By: RENNY Ondansetron HCl (Ondansetron 4 Mg/2 Ml Inj) 4 mg IV Q8HR PRN PRN Reason: Nausea And Vomiting Vital Signs Vital signs: Vital Signs - 8 hr 11/09/22 10:15 11/09/22 10:49 11/09/22 11:00 Temperature 98 F Pulse Rate 96 H 81 81 Respiratory Rate 17 Blood Pressure 137/78 Pulse Oximetry 99 99 97 Oxygen Delivery Method Room Air 11/09/22 11:30 Temperature Pulse Rate 68 Respiratory Rate 15 Blood Pressure Pulse Oximetry 100 Oxygen Delivery Method MDM - Allergic Reaction Lab Data 11/09/22 10:55 11/09/22 10:55 Labs: Lab Results 11/09/22 11/09/22 Range/Units 10:55 10:55 WBC 6.5 (4.5-11.0) X10^3/uL RBC 5.01 (4.5-5.9) X10^6/uL Hgb 14.8 (13.5-17.5) g/dL Hct 43.8 (41-53) % MCV 87.3 (80-100) fL MCH 29.5 (26-34) PG MCHC 33.9 (30-36) % RDW 13.1 (11.6-14.8) % Plt Count 217 (150-400) X10^3/uL Neut % (Auto) 65.1 (50-75) % Lymph % (Auto) 26.2 (25-40) % [place] % (Auto) 5.7 (3-14) % Eos % (Auto) 2.5 (2-4) % Baso % (Auto) 0.5 (0-2) % Neut # (Auto) 4200 (0066-3864) /uL Lymph # (Auto) 1700 (2035-0819) /uL [place] # (Auto) 400 (0-900) /uL Eos # (Auto) 200 (0-450) /uL Baso # (Auto) 0 (0-100) /uL Sodium 142 (137-145) mmol/L Potassium 3.8 (3.4-5.1) mmol/L Chloride 101 (98-107) mmol/L Carbon Dioxide 28 (22-32) mmol/L BUN 13 (9-20) mg/dL Creatinine 0.86 (0.66-1.25) mg/dL Estimated GFR > 60 (>60) mL/min BUN/Creatinine Ratio 15.1 (6-22) Glucose 94 (70-100) mg/dL Calcium 9.5 (8.4-10.2) mg/dL Total Bilirubin 0.6 (0.2-1.3) mg/dL AST 24 (17-59) IU/L ALT 21 (<50) IU/L Alkaline Phosphatase 51 (38-126) U/L Total Protein 8.5 H (6.3-8.2) g/dL Albumin 5.1 H (3.5-5.0) g/dL Globulin 3.4 (1.7-4.1) g/dL Albumin/Globulin Ratio 1.5 (1.0-2.8) Urine Dip Bedside Urine Glucose Negative Bedside Urine Bilirubin - Negative Bedside Urine Ketone - Negative Urine Specific [place] 1.015 Bedside Urine Occult Blood - Negative Bedside Urine pH 7.0 Bedside Urine Protein + 30 Bedside Urine Urobilinogen - Negative Bedside Urine Nitrite - Negative Bedside Urine Leukocytes - Negative Esterase Imaging Data CT soft tissue neck: Radiologist's Impression: [address] [address] [address] Scan Report Signed Patient: Александр Resendiz MR#: [id number] : 1995 Acct:[id number] Age/Sex: 27 / M Date of Service: 11/09/22 Loc: Accession Number: [id number] ?? Procedure: CT soft tissue neck w con Ordering Provider: Ochoa Puckett MD PROCEDURE:? CT SOFT TISSUE NECK W CON ? INDICATIONS:? Throat swelling ? TECHNIQUE:? After the administration of intravenous contrast, 3.0 mm axial sections acquired from the sella to the aortic arch.? Additional oblique axial 3.0 mm sections acquired through the pharynx.? 3 mm thick coronal and sagittal reformats were generated.? For radiation dose reduction, the following was used:? automated exposure control.? ? COMPARISON:? None. ? FINDINGS:? Image quality:? Excellent.? ? Lymph nodes:? No enlarged lymph nodes seen throughout the neck.? ? Vessels:? Visualized vasculature appears patent.? ? Neck spaces:? There is submucosal low-density within the oropharynx.? The nasopharynx and hypopharynx demonstrate no mucosal lesions.? The vocal cords, false vocal cords, pyriform sinuses, epiglottis, vallecula, and tongue base all appear normal.? Extramucosal spaces appear unremarkable.? ? Glands:? The parotid and submandibular glands appear normal.? Thyroid gland is grossly unremarkable.? ? Miscellaneous:? Visualized brain and orbits appear normal.? Lung apices appear clear.? Superficial soft tissues appear normal. ? Bones:? No suspicious bony lesions.? Visualized sinuses and mastoids appear unremarkable. ? ? ? IMPRESSION:? 1. Findings suggestive of submucosal edema versus cellulitis within the oropharynx.? Direct visualization recommended for further assessment. 2. Otherwise negative examination of the neck. ? Dictated by: Anthony Avalos M.D. on 11/09/2022 at 11:59 ? Transcribed by: RICK on 11/09/2022 at 12:01? ? Approved by: Anthony Avaols M.D. on 11/09/2022 at 12:02 ? X-ray soft tissue neck: Radiologist's Impression: [address] [address] XRay Report Signed Patient: Александр Resendiz MR#: [id number] : 1995 Acct:[id number] Age/Sex: 27 / M Date of Service: 11/09/22 Loc: ED Accession Number: [id number] ?? Procedure: XR soft tissue neck Ordering Provider: Ochoa Puckett MD PROCEDURE:? XR SOFT TISSUE NECK ? INDICATIONS:? Throat pain ? TECHNIQUE:? 2 views of the neck were acquired.? ? COMPARISON:? None. ? FINDINGS:? ? Airway:? The airway appears patent.? ? Soft tissues:? Prevertebral soft tissues are normal in thickness.? The epiglotti s and aryepiglottic folds appear normal.? No soft tissue gas.? Subglottic trachea is dilated on the lateral view.? ? Bones:? No suspicious bony lesions.? Visualized cervical spine is normally aligned.? Extensive thoracic spine orthopedic hardware. ? IMPRESSION:? ? 1. The trachea appears quite prominent.? This may potentially represent tracheomalacia in this patient.? There is no prevertebral soft tissue swelling or soft tissue gas. ? Comment:? Consider CT neck with contrast.? ? ? Dictated by: Lobito Munson M.D. on 11/09/2022 at 11:03 ? ? Approved by: Lobito Munson M.D. on 11/09/2022 at 11:12 ? [facility] Narrative Medical decision making narrative: Patient here for throat tightness and non itchy rash. This started last night. Patient took Benadryl at home and rash improved. However feels like something is caught in his throat. Continuing feel like he has to clear his throat. No trouble breathing. Denies denies any chest pain. Patient denies any recent changes or new habits or environment or medications or foods or detergents or soaps. Patient in no distress but is clearing his throat. No drooling. [facility] CC: Rash/throat discomfort Complicating co-morbidities: History of Marfan Data collected from: Patient Medical records reviewed: No previous visits seen for rash or throat discomfort Differential considered: Includes but not limited to urticaria/hives/drug reaction/environmental allergy/anaphylaxis Exam documented above, pertinent findings include: Small papules on skin Reviewed CBC no leukocytosis, CMP no acute renal injury Imaging studies independently reviewed: X-ray soft tissue neck and CT soft tissue neck show soft tissue swelling Treatments: Pepcid Solu-Medrol normal saline Rocephin Re-evaluations: Patient feeling much better after IV fluids/Solu-Medrol/Pepcid. Discussion: Appropriate for admission for observation for airway. Solu-Medrol Rocephin have been started. I did review with patient and partner and they do understand agree for admission. I spoke with otolaryngology as well for admission. Spoke with hospitalist and agrees for admission Diagnosis: Allergic reaction 12:50 p.m.. Spoke with otolaryngology Dr. Cory rodriguez, agrees patient should be admitted and observed. May use Decadron 20 mg IV. He will follow as consult 1:[address] spoke with hospitalist dr ennis, will admit Discharge Plan Departure Patient Disposition: Admitted as Observation Clinical Impression: Swelling of throat Admit Date/Time: 11/09/22 13:05 Admit Provider: Warren Ennis
[2022-11-09] MEDS: methylPREDNISolone 125 MG/2 ML VIAL IV (11:08)
[2022-11-09] MEDS: FAMOTIDINE 20 MG/2 ML VIAL IV (11:09)
[2022-11-09] MEDS: SODIUM CHLORIDE 0.9% 1,000 ML 1000 ML IV (11:09)
--- NOTE | 2022-11-09 11:28 | DI.CT.S_ITS ---
PROCEDURE: CT SOFT TISSUE NECK W CON INDICATIONS: Throat swelling TECHNIQUE: After the administration of intravenous contrast, 3.0 mm axial sections acquired from the sella to the aortic arch. Additional oblique axial 3.0 mm sections acquired through the pharynx. 3 mm thick coronal and sagittal reformats were generated. For radiation dose reduction, the following was used: automated exposure control. COMPARISON: None. FINDINGS: Image quality: Excellent. Lymph nodes: No enlarged lymph nodes seen throughout the neck. Vessels: Visualized vasculature appears patent. Neck spaces: There is submucosal low-density within the oropharynx. The nasopharynx and hypopharynx demonstrate no mucosal lesions. The vocal cords, false vocal cords, pyriform sinuses, epiglottis, vallecula, and tongue base all appear normal. Extramucosal spaces appear unremarkable. Glands: The parotid and submandibular glands appear normal. Thyroid gland is grossly unremarkable. Miscellaneous: Visualized brain and orbits appear normal. Lung apices appear clear. Superficial soft tissues appear normal. Bones: No suspicious bony lesions. Visualized sinuses and mastoids appear unremarkable. IMPRESSION: 1. Findings suggestive of submucosal edema versus cellulitis within the oropharynx. Direct visualization recommended for further assessment. 2. Otherwise negative examination of the neck. Dictated by: Anthony Avalos M.D. on 11/09/2022 at 11:59 Transcribed by: RICK on 11/09/2022 at 12:01 Approved by: Anthony Avalos M.D. on 11/09/2022 at 12:02
[2022-11-09 11:34] LABS: Add Manual Diff / Slide Review NO; Basophils Absolute Auto 0 /uL (0-100); Basophils Percent Auto 0.5 % (0-2); Eosinophils Absolute Auto 200 /uL (0-450); Eosinophils Percent Auto 2.5 % (2-4); Hematocrit 43.8 % (41-53); Hemoglobin 14.8 g/dL (13.5-17.5); Lymphocytes Absolute Auto 1700 /uL (1100-4500); Lymphocytes Percent Auto 26.2 % (25-40); Mean Corpuscular HGB Conc 33.9 % (30-36); Mean Corpuscular Hemoglobin 29.5 PG (26-34); Mean Corpuscular Volume 87.3 fL (80-100); Monocytes Absolute Auto 400 /uL (0-900); Monocytes Percent Auto 5.7 % (3-14); Neutrophils Absolute Auto 4200 /uL (1500-7000); Neutrophils Percent Auto 65.1 % (50-75); Platelet Count 217 X10^3/uL (150-400); Red Blood Cell Count 5.01 X10^6/uL (4.5-5.9); Red Cell Distribution Width 13.1 % (11.6-14.8); White Blood Cell Count 6.5 X10^3/uL (4.5-11.0)
[2022-11-09 11:41] LABS: Alanine Aminotransferase 21 IU/L (<50); Albumin 5.1 g/dL (3.5-5.0); Albumin Globulin Ratio 1.5 (1.0-2.8); Alkaline Phosphatase 51 U/L (38-126); Aspartate Aminotransferase 24 IU/L (17-59); BUN Creatinine Ratio 15.1 (6-22); Bilirubin Total 0.6 mg/dL (0.2-1.3); Blood Urea Nitrogen 13 mg/dL (9-20); Calcium 9.5 mg/dL (8.4-10.2); Carbon Dioxide 28 mmol/L (22-32); Chloride 101 mmol/L (98-107); Estimated Glomerular Filt Rate > 60 mL/min (>60); Globulin 3.4 g/dL (1.7-4.1); Glucose 94 mg/dL (70-100); HEMOLYSIS < 15 (0-50); Potassium 3.8 mmol/L (3.4-5.1); Sodium 142 mmol/L (137-145); Total Protein 8.5 g/dL (6.3-8.2)
[2022-11-09] MEDS: cefTRIAXone 2,000 MG in SODIUM CHLORIDE 0.9% 100 ML 200 MG IV (13:06)
--- NOTE | 2022-11-09 13:07 | CM.IDA ---
Initial Brief DCP Assessment Patient is 27 y/o male who presents to ED due to concern for allergic reaction. Patient endorses tightness in throat and anxiety. Patient is allergic to shrimp but denies eating shrimp recently. Patient's PCP is BONITA Hurst, Patient has [employer] and [employer] insurance. Patient has hx of Marfans Syndrome, Scoliosis, Pectus Excavatum and Seizures. Patient has hx of thoracic spinal fusion. Patient is accepted Observational by hospitalist due to concern for swelling of throat, ED provider consults with Otolaryngology Dr. Lambert due to concern for patient's airways, patient is being treated with antibiotics. Per RN, patient presents with anxiety and patient endorses he was having an anxiety attack in regards to being admitted and patient endorses hx of Anxiety. RN endorses patient may not be ready to meet with ON SITE NURSE at this time. ON SITE NURSE to attempt to meet with patient another time. ON SITE NURSE observes patient ambulate independently to the bathroom. It is reported that patient has family present in his room. Plan: DCP to f/u with POC to assess patient needs, no identified needs at this time, patient to be admitted to acute care for observation. 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 No History Provided By Medical Record Has Patient been admitted in last 30 No days? Prior Living Arrangements Apartment/Condo Type of transporation used prior to Drives own vehicle admit Independent with ADL's Yes Is patient alert and oriented? Yes Referrals Initiated None needed Please Provide Date Initial DC 11/09/22 Assessment Was Performed
[2022-11-09 14:12] LABS: Strep Grp A by PCR Rapid Negative (Negative)
[2022-11-09 15:03] LABS: COVID19 -Nasal RAPID Negative (Negative)
--- NOTE | 2022-11-09 17:08 | PM.HP.1 ---
History of Present Illness History of Present Illness Date Patient Seen: 11/09/22 Time Patient Seen: 15:00 Chief complaint: allergic reaction, difficulty swallowing Narrative: Mr. Ozuna is a 27M with PMH of Marfan's and shrimp allergy who presents to the hospital with throat tightness. He was at work yesterday, he had no new exposure to soaps or other lotions. He had no new diet exposures and no known shrimp or other seafood exposure. After work he went home and noted he had a rash on his upper extremities and abdomen. He eventually went to sleep. When he woke up the next morning he had throat itchiness and felt it was tight and had mild pain with swallowing. No fevers/chills. No trouble breathing, no lightheadedness. In the ED workup was done, vitals notable for heart rate in the 90s. Labs notable for WBC 6.9, creatinine 0.86. CT neck showed findings suggestive of submucosal edema. He was given antibiotics and steroids and admitted for further treament. When he arrive to the floor he was completely asymptomatic. Patient History Medical History Marfans syndrome Pectus excavatum Scoliosis Seizure Surgical History Status post thoracic spinal fusion Family & Social History Social History: household members significant other Prior Living Arrangements Apartment/Condo Safety & Behavioral: Feels Safe in Current Yes Environment Been Physically Hurt or No Threatened By a Person Tobacco & Substance use: Tobacco type e-cigarettes Smoking Status Current every day smoker alcohol intake current alcohol intake frequency 0-2 drinks per day Substance Use Type does not use Meds Home Medications and Allergies Home Medications Medication Instructions Recorded Confirmed Type amoxicillin 875 mg-potassium 1 tab PO BID #14 tabs 11/09/22 Rx clavulanate 125 mg tablet prednisone 10 mg tablet 60 mg PO DAILY #26 tabs 11/09/22 Rx Allergies Allergy/AdvReac Type Severity Reaction Status Date / Time shrimp Allergy Verified 11/09/22 10:18 prochlorperazine AdvReac Severe Agitated Verified 11/09/22 10:18 [From Compazine] fluoxetine [From Prozac] AdvReac Verified 11/09/22 10:18 Review of Systems Review of Systems Narrative: 14 systems reviewed and negative aside from what is noted in HPI Exam Vital Signs (past 8 hours): Oxygen Delivery Method Room Air Oxygen Flow Rate 0 Narrative Exam Narrative: GEN: no acute distress CV: regular rate and rhythm PULM: clear bilaterally, no wheezes, rhonchi, rales ABD: soft, nontender, nondistended, no organomegaly SKIN: no rashes HEENT: clear oropharynx, no masses, no swelling, no lymphadenopathy Objective Labs 11/09/22 10:55 11/09/22 10:55 Labs: Laboratory Results - last 24 hr 11/09/22 11/09/22 11/09/22 10:55 10:55 13:41 WBC 6.5 RBC 5.01 Hgb 14.8 Hct 43.8 MCV 87.3 MCH 29.5 MCHC 33.9 RDW 13.1 Plt Count 217 Neut % (Auto) 65.1 Lymph % (Auto) 26.2 [place] % (Auto) 5.7 Eos % (Auto) 2.5 Baso % (Auto) 0.5 Neut # (Auto) 4200 Lymph # (Auto) 1700 [place] # (Auto) 400 Eos # (Auto) 200 Baso # (Auto) 0 Sodium 142 Potassium 3.8 Chloride 101 Carbon Dioxide 28 BUN 13 Creatinine 0.86 Estimated GFR > 60 BUN/Creatinine Ratio 15.1 Glucose 94 Calcium 9.5 Total Bilirubin 0.6 AST 24 ALT 21 Alkaline Phosphatase 51 Total Protein 8.5 H Albumin 5.1 H Globulin 3.4 Albumin/Globulin Ratio 1.5 SARS-CoV-2 (PCR) Negative Group A Strep (PCR) 11/09/22 13:44 WBC RBC Hgb Hct MCV MCH MCHC RDW Plt Count Neut % (Auto) Lymph % (Auto) [place] % (Auto) Eos % (Auto) Baso % (Auto) Neut # (Auto) Lymph # (Auto) [place] # (Auto) Eos # (Auto) Baso # (Auto) Sodium Potassium Chloride Carbon Dioxide BUN Creatinine Estimated GFR BUN/Creatinine Ratio Glucose Calcium Total Bilirubin AST ALT Alkaline Phosphatase Total Protein Albumin Globulin Albumin/Globulin Ratio SARS-CoV-2 (PCR) Group A Strep (PCR) Negative Assessment & Plan Assessment & Plan narrative: 1. Throat tightness -etiology possible infectious vs allergic, had resolution of symptoms by the time he was seen on the floor which was quicker than expected -discussed with ENT who reviewed imaging and noted airway appeared very patent and felt he was appropriate for discharged and follow up -will monitor patient for a few more hours and if not recurrence of symptoms plan for discharge I have reviewed the case with patient's bedside nurse, ED physician, and ENT physician. I have personally reviewed labs and neck imaging. 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 Quality VTE Deep Vein Thrombosis/Pulmonary Embolism Present on Admission: No MIPS - Meds 'Current medications' to include all prescriptions, [id number] products, herbals, cannabis/cannabidiol products, and vitamin/mineral/dietary (nutritional) supplements. I have utilized all available resources to obtain, update, or review the patient?s current medications. [If Yes, STOP here]: Yes
--- NOTE | 2022-11-09 18:52 | PC.NURSE ---
Day shift: Left unit at approx 1845. Paperwork signed and all questions answered. No new symtoms and Pt feeling good and also wanting to go home. OK with Dr De Luna. Pt encouraged to f/u with other providers.
--- NOTE | 2022-11-09 20:22 | PM.DS.1 ---
History of Present Illness History of Present Illness Chief complaint: allergic reaction, difficulty swallowing Narrative: Mr. Ozuna is a 27M with PMH of Marfan's and shrimp allergy who presents to the hospital with throat tightness. He was at work yesterday, he had no new exposure to soaps or other lotions. He had no new diet exposures and no known shrimp or other seafood exposure. After work he went home and noted he had a rash on his upper extremities and abdomen. He eventually went to sleep. When he woke up the next morning he had throat itchiness and felt it was tight and had mild pain with swallowing. No fevers/chills. No trouble breathing, no lightheadedness. In the ED workup was done, vitals notable for heart rate in the 90s. Labs notable for WBC 6.9, creatinine 0.86. CT neck showed findings suggestive of submucosal edema. He was given antibiotics and steroids and admitted for further treament. When he arrive to the floor he was completely asymptomatic. Discharge Providers Provider Date of admission: 11/09/22 13:05 Discharge Date: 11/09/22 Primary care physician: BONITA Hurst Discharge provider: Warren De Luna MD Summary Hospital Course Discharge Diagnosis: 1. Throat tightness Hospital Course: Mr. Ozuna was admitted for throat tightness. Etiology was possible allergic exposure versus infection. He never had respiratory symptoms or difficulty swallowing. Strep negative. White count normal. He improved and symptoms resolved with one dose of antibiotics and steroids. CT scan showed possible oropharyngeal submucosal swelling. Discussed with home health clinical liaison ENT who said since patient improved quickly with treatment could be discharged withh plan for antibiotcs and steroid taper and ENT follow up within one week. Exam Vital Signs (past 8 hours): Oxygen Delivery Method Room Air Oxygen Flow Rate 0 Narrative Exam Narrative: GEN: no acute distress CV: regular rate and rhythm PULM: clear bilaterally, no wheezes, rhonchi, rales ABD: soft, nontender, nondistended, no organomegaly SKIN: no rashes HEENT: clear oropharynx, no masses, no swelling, no lymphadenopathy Objective Labs 11/09/22 10:55 11/09/22 10:55 Labs: Laboratory Results - last 24 hr 11/09/22 11/09/22 11/09/22 10:55 10:55 13:41 WBC 6.5 RBC 5.01 Hgb 14.8 Hct 43.8 MCV 87.3 MCH 29.5 MCHC 33.9 RDW 13.1 Plt Count 217 Neut % (Auto) 65.1 Lymph % (Auto) 26.2 [place] % (Auto) 5.7 Eos % (Auto) 2.5 Baso % (Auto) 0.5 Neut # (Auto) 4200 Lymph # (Auto) 1700 [place] # (Auto) 400 Eos # (Auto) 200 Baso # (Auto) 0 Sodium 142 Potassium 3.8 Chloride 101 Carbon Dioxide 28 BUN 13 Creatinine 0.86 Estimated GFR > 60 BUN/Creatinine Ratio 15.1 Glucose 94 Calcium 9.5 Total Bilirubin 0.6 AST 24 ALT 21 Alkaline Phosphatase 51 Total Protein 8.5 H Albumin 5.1 H Globulin 3.4 Albumin/Globulin Ratio 1.5 SARS-CoV-2 (PCR) Negative Group A Strep (PCR) 11/09/22 13:44 WBC RBC Hgb Hct MCV MCH MCHC RDW Plt Count Neut % (Auto) Lymph % (Auto) [place] % (Auto) Eos % (Auto) Baso % (Auto) Neut # (Auto) Lymph # (Auto) [place] # (Auto) Eos # (Auto) Baso # (Auto) Sodium Potassium Chloride Carbon Dioxide BUN Creatinine Estimated GFR BUN/Creatinine Ratio Glucose Calcium Total Bilirubin AST ALT Alkaline Phosphatase Total Protein Albumin Globulin Albumin/Globulin Ratio SARS-CoV-2 (PCR) Group A Strep (PCR) Negative [facility] Medical History Marfans syndrome Pectus excavatum Scoliosis Seizure Surgical History Status post thoracic spinal fusion Social History household members: significant other Smoking Status: Current every day smoker alcohol intake: current Discharge Plan Discharge Plan Patient Disposition: Home Discharge orders & Medications Prescriptions: New amoxicillin-pot clavulanate 875-125 mg tablet 1 tab PO BID Qty: 14 0RF prednisone 10 mg tablet 60 mg PO DAILY Qty: 26 0RF Rx Instructions: taper: 60mg for 2 days, 40mg for 2 days, 20mg for 2 days, 10mg for 2 days, stop Follow up/Referrals: [facility] [Provider Group] - 11/16/22 2:40 pm (Appt:11/16 @ 2:40 w/dr lambert @ [address] lydia you will need prior authrization from [facility] prior to this appointment & you will also need to request to be assigned a momd teacher through [facility] please call [facility] sunday am to arrange this ) Ron Brower, [Non-Staff] - (please request a 1 week follow up after hospitilization of allergic reaction and request for this office to file a referal to [facility]-dr lambert you have a appointment with Dr Lambert on nov 16) Diet/Activity/Treatments Diet: Regular Visit Report/Discharge Packet Instructions: Anaphylaxis, DI for Anaphylaxis Stand Alone Forms: Patient Portal/API, Stroke Signs & Symptoms Discharge Data Primary Care Provider: Gerri Dunn Attending Provider: Warren De Luna VTE Deep Vein Thrombosis/Pulmonary Embolism Present on Admission: No
== END 2022-11-09 18:54 | disposition home or self-care (01) ==
LOC: ED 13:04 → AC 13:06
PROVIDERS: Admitting Provider Internal Medicine; Emergency Provider Emergency Medicine; PCP Internal Medicine; Referring Provider Emergency Medicine; Visit Provider Internal Medicine
DX: R13.14 Dysphagia, pharyngoesophageal phase (principal); R21 Rash and other nonspecific skin eruption; Z20.822 Contact with and (suspected) exposure to COVID-19
CPT/HCPCS: 36415; 70360; 70491; 80053; 81003; 85025; 87635; 87651; 96361; 96365; 96375; 99284; 99285; C9803; G0378; J0696; J2930

== ENCOUNTER 2023-08-15 09:31 | Emergency (ER) | payer OTHER, SELFPAY ==
[2022-11-09 13:54] VITALS: BMI 16.7
[2023-08-15 09:34] VITALS: BP 126/81; PULSE 102; RESP 16; TEMP 37.1; O2SAT 100; BMI 15.8
--- NOTE | 2023-08-15 09:43 | ED_ITS ---
HPI - Neck Pain/Injury General Chief Complaint: Neck Pain/Injury Stated Complaint: neck pain, can't move it Time Seen by Provider: 08/15/23 09:32 Source: patient Mode of arrival: Ambulatory History of Present Illness HPI Narrative: 28-year-old male. History of Marfan syndrome. Also has a history of scoliosis. Occasionally gets episodes where he has cervical muscle spasms. This is what brought him into the emergency department today. He is tried Tylenol with only minimal improvement. He denied any specific trauma. No fevers. Discomfort into the right side of his neck and his left upper back. Related Data Previous Rx's Medication Instructions Recorded cyclobenzaprine 10 mg tablet 10 mg PO TID PRN muscle spasm #20 08/15/23 tabs Allergies Allergy/AdvReac Type Severity Reaction Status Date / Time shrimp Allergy Verified 08/15/23 09:43 prochlorperazine AdvReac Severe Agitated Verified 08/15/23 09:43 [From Compazine] fluoxetine [From Prozac] AdvReac Verified 08/15/23 09:43 Review of Systems Constitutional Constitutional: Reports system reviewed and no additional complaints, except as documented Musculoskeletal Musculoskeletal: Reports system reviewed and no additional complaints, except as documented Integumentary/Breasts Skin/Breast: Reports system reviewed and no additional complaints, except as documented Neurologic Neurologic: Reports system reviewed and no additional complaints, except as documented Patient History Medical History Scoliosis Pectus excavatum Marfans syndrome Seizure Surgical History Status post thoracic spinal fusion Social History household members: significant other Smoking Status: Current every day smoker alcohol intake: current Smoking Status: Current every day smoker tobacco type: vaping alcohol intake frequency: 0-2 drinks per day Substance Use Type: does not use Exam Initial Vital Signs Initial Vital Signs: Vital Signs Temperature 98.7 F 08/15/23 09:34 Pulse Rate 102 H 08/15/23 09:34 Respiratory Rate 16 08/15/23 09:34 Blood Pressure 126/81 08/15/23 09:34 Pulse Oximetry 100 08/15/23 09:34 Oxygen Delivery Method Room Air 08/15/23 09:34 [facility] Head: normal to inspection and normocephalic Back/Spine/Pelvis Other: Patient with muscle fullness and tenderness along the right-sided cervical posterior paraspinal muscles. He has discomfort with side bending to the right of his cervical spine and also turning his head to the right. He does not have any discomfort along the anterior sternocleidomastoid. He also has tenderness on the left upper back muscles. Skin General: no rashes or lesions noted Course Orders Ordered: Discontinued Medications Cyclobenzaprine HCl (Cyclobenzaprine 10 Mg Tablet) 10 mg PO NOW ONE Stop: 08/15/23 09:42 Ketorolac Tromethamine (Ketorolac 30 Mg/Ml Vial) 30 mg IM NOW ONE Stop: 08/15/23 09:42 Vital Signs Vital signs: Vital Signs - 8 hr 08/15/23 09:34 Temperature 98.7 F Pulse Rate 102 H Respiratory Rate 16 Blood Pressure 126/81 Pulse Oximetry 100 Oxygen Delivery Method Room Air MDM - Neck Pain/Injury MDM Narrative Medical decision making narrative: This is clearly a muscle spasm based on his physical exam. No radiologic studies necessary. I do acknowledge his Marfan syndrome but I have low suspicion for connective tissue issues. Will try muscle relaxers and anti- inflammatories. He was given return precautions. He expressed understanding and agreement with plan. Discharge Plan Departure Patient Disposition: Home Clinical Impression: Cervical paraspinous muscle spasm Instructions: DI for Muscle Spasm Activity Restrictions/Additional Instructions: Do recommend that you continue with conservative measures such as heat/ice and massage and anti-inflammatories. Use the muscle relaxers as needed. I suspect that your symptoms will improve over the next couple days. Return to the emergency department for new symptoms. Prescriptions: New cyclobenzaprine 10 mg tablet 10 mg PO TID PRN (Reason: muscle spasm) Qty: 20 0RF Referrals: Gerri Dunn ARNP [Primary Care Provider] - Stand Alone Forms: Patient Portal/API
[2023-08-15] MEDS: KETOROLAC 30 MG/ML VIAL IM (09:48)
[2023-08-15] MEDS: CYCLOBENZAPRINE 10 MG TABLET PO (09:50)
== END 2023-08-15 09:54 | disposition home or self-care (01) ==
PROVIDERS: Emergency Provider Emergency Medicine; PCP Internal Medicine
DX: M62.830 Muscle spasm of back (principal); M54.2 Cervicalgia
CPT/HCPCS: 96372; 99283; J1885

== ENCOUNTER 2024-02-15 09:31 | Emergency (ER) | payer OTHER, SELFPAY ==
[2022-11-09 13:54] VITALS: BMI 16.7
[2024-02-15 09:48] VITALS: BP 141/67; PULSE 111; RESP 18; TEMP 36.9; O2SAT 100; BMI 17.3
--- NOTE | 2024-02-15 10:13 | ED.URI ---
HPI - URI/Sore Throat General Chief Complaint: Upper Respiratory Symptoms Stated Complaint: per pt throat swelling Time Seen by Provider: 02/15/24 10:10 Source: patient Mode of arrival: Family Vehicle History of Present Illness HPI Narrative: Patient healthy 29-year-old male who presents today with lump in his throat. He denies any sort of sore throat. He has no difficulty swallowing but does feel something move when he swallows. He does not feel like anything stuck. He previously had a anaphylactic reaction he feels like this might be kind of it. He has no rashes no new foods or things. He never found out what he was allergic to. He called the nursing hotline and was instructed to come to the ED. Related Data Previous Rx's Medication Instructions Recorded cyclobenzaprine 10 mg tablet 10 mg PO TID PRN muscle spasm #20 08/15/23 tabs Allergies Allergy/AdvReac Type Severity Reaction Status Date / Time shrimp Allergy Verified 02/15/24 09:52 prochlorperazine AdvReac Severe Agitated Verified 02/15/24 09:52 [From Compazine] fluoxetine [From Prozac] AdvReac Verified 02/15/24 09:52 Patient History Medical History Scoliosis Pectus excavatum Marfans syndrome Seizure Surgical History Status post thoracic spinal fusion Social History household members: significant other Smoking Status: Current every day smoker alcohol intake: current Smoking Status: Current every day smoker tobacco type: vaping alcohol intake frequency: 0-2 drinks per day Substance Use Type: does not use Exam Initial Vital Signs Initial Vital Signs: Vital Signs Temperature 98.4 F 02/15/24 09:48 Pulse Rate 111 H 02/15/24 09:48 Respiratory Rate 18 02/15/24 09:48 Blood Pressure 141/67 H 02/15/24 09:48 Pulse Oximetry 100 02/15/24 09:48 Oxygen Delivery Method Room Air 02/15/24 09:48 GENERAL: Alert pleasant well-appearing 21-year-old male and in no acute distress. HEENT: Head atraumatic,EOMI, pupils reactive, PHARYNX: No significant uvula swelling or deviation no cervical lymphadenopathy no tonsillar exudate or erythema airway patent managing her own secretions no tongue swelling or lip so CARDIOVASCULAR: Regular rate and rhythm without murmurs, rubs or gallops. RESPIRATORY: Breath sounds equal bilaterally, no wheezes rales or rhonchi. EXTREMITIES: Normal range of motion, no clubbing or edema. Neurovascularly intact SKIN: Warm, dry, no laceration, no petechiae, no rashes or lesions. Course Orders Ordered: Discontinued Medications Dexamethasone (Dexamethasone 10 Mg/Ml Vial) 10 mg PO NOW ONE Stop: 02/15/24 10:21 Last Admin: 02/15/24 10:26 Dose: 10 mg Documented By: BEVERLEY Diphenhydramine HCl (Diphenhydramine 25 Mg Tablet) 25 mg PO NOW ONE Stop: 02/15/24 10:21 Last Admin: 02/15/24 10:26 Dose: 25 mg Documented By: BEVERLEY Vital Signs Vital signs: Vital Signs - 8 hr 02/15/24 09:48 02/15/24 10:36 Temperature 98.4 F Pulse Rate 111 H 86 Respiratory Rate 18 14 Blood Pressure 141/67 H 123/68 Pulse Oximetry 100 98 Oxygen Delivery Method Room Air Room Air MDM - URI/Sore Throat MDM Narrative Medical decision making narrative: Pleasant well-appearing 29-year-old male no significant sign of infection no cervical lymphadenopathy or erythema. He does not have any evidence anaphylaxis. He is able to speak no stridor. I do not see a need for epinephrine. Has no rash.. He is given dexamethasone and Benadryl here in the ED. He has an EpiPen at home he knows how to use it. Discharge Plan Departure Patient Disposition: Home Clinical Impression: Allergic reaction Instructions: DI for General Allergic Reactions Activity Restrictions/Additional Instructions: *You have been diagnosed with allergic reaction *What to do: At this time it is possibly of a mild allergic reaction. You were given dexamethasone here in the ED which should last for a couple of days. *Continue to take medications as directed Benadryl 25-50 mg every 6 hours if needed for itching Use epinephrine pen as needed *Follow up with your primary care provider in 2-3 days or call [phone] *Return to ER if you should have increased difficulty breathing swallowing tongue swelling rash lip swelling or any new, worsening or concerning symptoms Prescriptions: No Action cyclobenzaprine 10 mg tablet 10 mg PO TID PRN (Reason: muscle spasm) Qty: 20 0RF Referrals: Gerri Dunn ARNP [Primary Care Provider] - Stand Alone Forms: Patient Portal/API
[2024-02-15] MEDS: diphenhydrAMINE 25 MG TABLET PO (10:26)
[2024-02-15] MEDS: DEXAMETHASONE 10 MG/ML VIAL PO (10:26)
[2024-02-15 10:36] VITALS: BP 123/68; PULSE 86; RESP 14; O2SAT 98
== END 2024-02-15 10:37 | disposition home or self-care (01) ==
PROVIDERS: Emergency Provider Emergency Medicine; PCP Internal Medicine
DX: T78.40XA Allergy, unspecified, initial encounter (principal)
CPT/HCPCS: 99283; J1100

== ENCOUNTER 2024-02-18 10:50 | Emergency (ER) | payer OTHER, SELFPAY ==
[2022-11-09 13:54] VITALS: BMI 16.7
[2024-02-18] VITALS (7 sets, daily range): BP systolic 102–155; BP diastolic 60–71; PULSE 76–126; RESP 10–16; TEMP 36.8; O2SAT 95–100; BMI 17.3
--- NOTE | 2024-02-18 10:57 | DI.RAD.S_ITS ---
PROCEDURE: XR CHEST 1V INDICATIONS: chest pain TECHNIQUE: One view of the chest was acquired. COMPARISON: [facility], CR, XR CHEST 1V, 09/11/2021, 16:12. FINDINGS: Surgical changes and devices: Cutler rods Lungs and pleura: Lungs are clear. No pleural effusions or pneumothorax. Mediastinum: Mediastinal contours appear normal. Heart size is normal. Bones and chest wall: No suspicious bony lesions. Overlying soft tissues appear unremarkable. IMPRESSION: No acute cardiopulmonary abnormality is seen. Dictated by: Lobito Munson M.D. on 02/18/2024 at 11:55 Approved by: Lobito Munson M.D. on 02/18/2024 at 11:55
--- NOTE | 2024-02-18 11:15 | ED_ITS ---
HPI - General Adult General Chief complaint: Dizziness Stated complaint: Dizzy, NVD Time Seen by Provider: 02/18/24 11:15 Source: patient Mode of arrival: Ambulatory History of Present Illness HPI narrative: 29-year-old gentleman with significant pectus excavatum, mild anxiety no prescription medications presents complaining of increasing dizziness with an episode of near syncope this morning. He had an episode of dry heaves but no overt vomiting. No diarrhea no abdominal pain. Not complaining of palpitations. Not particularly anxious today his initial assumption was that he was having a panic attack. He comes in for further evaluation Related Data Previous Rx's Medication Instructions Recorded cyclobenzaprine 10 mg tablet 10 mg PO TID PRN muscle spasm #20 08/15/23 tabs Allergies Allergy/AdvReac Type Severity Reaction Status Date / Time shrimp Allergy Verified 02/18/24 10:57 prochlorperazine AdvReac Severe Agitated Verified 02/18/24 10:57 [From Compazine] fluoxetine [From Prozac] AdvReac Verified 02/18/24 10:57 Review of Systems Review of Systems Narrative: Pertinent positive and negative findings as per HPI Patient History Medical History Scoliosis Pectus excavatum Marfans syndrome Seizure Surgical History Status post thoracic spinal fusion Social History household members: significant other Smoking Status: Current every day smoker alcohol intake: current Smoking Status: Current every day smoker tobacco type: vaping alcohol intake frequency: a few times a month Substance Use Type: does not use Exam Initial Vital Signs Initial Vital Signs: Vital Signs Temperature 98.3 F 02/18/24 10:54 Pulse Rate 126 H 02/18/24 10:54 Respiratory Rate 16 02/18/24 10:54 Blood Pressure 155/70 H 02/18/24 10:54 Pulse Oximetry 99 02/18/24 10:54 Oxygen Delivery Method Room Air 02/18/24 10:54 General: Healthy appearing, in no acute distress. Able to give a complete and coherent history. Well-nourished well-developed HEENT: Moist mucous membranes, normal sclera with reactive pupils, Neck: No JVD, supple Respiratory: Lungs are clear to auscultation, no wheezing no rales no rhonchi. Full and symmetrical air movement Chest: Deep pectus excavatum Cardiac: Regular rate and rhythm no murmurs no bruits Abdomen: Soft, nontender, good bowel tones, no flank pain Skin: Warm and dry, no rashes Neurologic: Grossly neurologically intact with no obvious asymmetries or abnormalities Extremities: No trauma, well perfused Psych: Cooperative, appropriate insight and affect Course Orders Ordered: ED Orders 02/18/24 10:57 XR chest 1V Stat EKG-12 Lead Stat 02/18/24 11:16 Complete Blood Count AUTO DIFF Stat Comprehensive Metabolic Panel Stat Lipase Stat Magnesium Stat PTT Partial Thromboplastin Crescencio Stat Prothrombin Time INR Stat Troponin & CK Cardiac Panel Stat Sodium Chloride (Normal Saline 0.9%) 1,000 mls @ 1,000 mls/hr IV BOLUS ONE Stop: 02/18/24 12:14 Last Admin: 02/18/24 11:24 Dose: 1,000 mls/hr Documented By: SHUBHAM Discontinued Medications Aspirin (Aspirin 81 Mg Chew Tab) 324 mg PO NOW ONE Stop: 02/18/24 10:58 Ondansetron HCl (Ondansetron 4 Mg/2 Ml Inj) 4 mg IV NOW ONE Stop: 02/18/24 11:16 Last Admin: 02/18/24 11:24 Dose: 4 mg Documented By: SHUBHAM Vital Signs Vital signs: Vital Signs - 8 hr 02/18/24 10:54 02/18/24 11:02 02/18/24 11:03 Temperature 98.3 F Pulse Rate 126 H 108 H 105 H Respiratory Rate 16 12 10 L Blood Pressure 155/70 H Pulse Oximetry 99 100 100 Oxygen Delivery Method Room Air Room Air 02/18/24 11:03 Temperature Pulse Rate Respiratory Rate Blood Pressure 143/68 H Pulse Oximetry Oxygen Delivery Method Medical Decision Making Lab Data 02/18/24 11:16 02/18/24 11:16 Labs: Lab Results 02/18/24 Range/Units 11:16 WBC 8.1 (4.5-11.0) X10^3/uL RBC 5.26 (4.5-5.9) X10^6/uL Hgb 15.7 (13.5-17.5) g/dL Hct 45.1 (41-53) % MCV 85.8 (80-100) fL MCH 29.8 (26-34) PG MCHC 34.8 (30-36) % RDW 13.4 (11.6-14.8) % Plt Count 253 (150-400) X10^3/uL Neut % (Auto) 65.8 (50-75) % Lymph % (Auto) 26.9 (25-40) % [place] % (Auto) 6.0 (3-14) % Eos % (Auto) 0.8 L (2-4) % Baso % (Auto) 0.5 (0-2) % Neut # (Auto) 5400 (7235-1666) /uL Lymph # (Auto) 2200 (3048-5476) /uL [place] # (Auto) 500 (0-900) /uL Eos # (Auto) 100 (0-450) /uL Baso # (Auto) 0 (0-100) /uL PT 11.3 (9.4-12.5) SECONDS INR 1.0 (0.9-1.3) APTT 28 (25.1-36.5) SECONDS Sodium 142 (137-145) mmol/L Potassium 4.1 (3.4-5.1) mmol/L Chloride 105 (98-107) mmol/L Carbon Dioxide 29 (22-32) mmol/L BUN 16 (9-20) mg/dL Creatinine 0.91 (0.66-1.25) mg/dL Estimated GFR > 60 (>60) mL/min BUN/Creatinine Ratio 17.6 (6-22) Glucose 104 H (70-100) mg/dL Calcium 9.6 (8.4-10.2) mg/dL Magnesium 2.2 (1.6-2.3) mg/dL Total Bilirubin 0.8 (0.2-1.3) mg/dL AST 30 (17-59) IU/L ALT 27 (<50) IU/L Alkaline Phosphatase 59 (38-126) U/L Total Creatine Kinase 71 (55-170) U/L Total Protein 8.6 H (6.3-8.2) g/dL Albumin 5.2 H (3.5-5.0) g/dL Globulin 3.4 (1.7-4.1) g/dL Albumin/Globulin Ratio 1.5 (1.0-2.8) Lipase 117 (23-300) U/L MDM Narrative Medical decision making narrative: CC: Weakness with near-syncope Complicating co-morbidities: No recent illnesses, he does have significant pectus excavatum. History of seizures with most recent 1 in January of 2021 Data collected from: patient, partner Medical records reviewed: Notes from prior ER visits are reviewed Differential considered: Dehydration, electrolyte abnormalities, viral syndrome, coronary syndrome, seizure Exam documented above, pertinent findings include: Exam is entirely benign Lab Test results independently reviewed as above. Pertinent findings: CBC is reassuring no evidence of infection or anemia Chemistries are reassuring Initial troponin is within normal limits No evidence of pancreatitis Independently reviewed EKG: EKG shows sinus rhythm at a rate of 92. No acute ischemic changes Imaging studies independently reviewed: Chest x-ray is notable for Cutler rods otherwise benign cardiopulmonary findings Treatments: A L of fluid is given, parenteral Zofran Discussion: Patient is re-evaluated. After a L of fluid he is feeling significantly better. We reviewed labs and workup in detail. At this point I do not have an explanation for the near syncopal feeling. Possible dehydration, possible anxiety exacerbated. At this point there is no evidence of significant infection, reason for hospitalization or reason for advanced imaging. Findings reviewed with the patient he will follow up with his primary care physician and he is safe for discharge Discharge Plan Departure Patient Disposition: Home Clinical Impression: Near syncope Instructions: DI for Syncope in Adults (Fainting) Activity Restrictions/Additional Instructions: Thank you for coming in today I did not find any life-threatening abnormalities or findings that would suggest we need to do additional imaging or keep you in the hospital Your EKG was reassuring without evidence of heart attack. Blood work confirms this. No evidence of kidney failure, liver failure, electrolyte abnormalities. No evidence of acute bacterial infection or significant anemia. You improved with fluids and a dose of nausea medication in the emergency department I believe it is safe for you to go home. Please make sure you are drinking plenty of fluids and eating a balanced diet. If you find that you are getting worse or develop any new symptoms, please feel free to return to the emergency department for further evaluation. Prescriptions: No Action cyclobenzaprine 10 mg tablet 10 mg PO TID PRN (Reason: muscle spasm) Qty: 20 0RF Referrals: Gerri Dunn ARNP [Primary Care Provider] - Stand Alone Forms: Patient Portal/API
[2024-02-18 11:21] LABS: Add Manual Diff / Slide Review NO; Basophils Absolute Auto 0 /uL (0-100); Basophils Percent Auto 0.5 % (0-2); Eosinophils Absolute Auto 100 /uL (0-450); Eosinophils Percent Auto 0.8 % (2-4); Hematocrit 45.1 % (41-53); Hemoglobin 15.7 g/dL (13.5-17.5); Lymphocytes Absolute Auto 2200 /uL (1100-4500); Lymphocytes Percent Auto 26.9 % (25-40); Mean Corpuscular HGB Conc 34.8 % (30-36); Mean Corpuscular Hemoglobin 29.8 PG (26-34); Mean Corpuscular Volume 85.8 fL (80-100); Monocytes Absolute Auto 500 /uL (0-900); Neutrophils Absolute Auto 5400 /uL (1500-7000); Neutrophils Percent Auto 65.8 % (50-75); Platelet Count 253 X10^3/uL (150-400); Red Blood Cell Count 5.26 X10^6/uL (4.5-5.9); Red Cell Distribution Width 13.4 % (11.6-14.8); White Blood Cell Count 8.1 X10^3/uL (4.5-11.0)
[2024-02-18] MEDS: SODIUM CHLORIDE 0.9% 1,000 ML 1000 ML IV (11:24)
[2024-02-18] MEDS: ONDANSETRON 4 MG/2 ML INJ IV (11:24)
[2024-02-18 11:29] LABS: Prothrombin Time 11.3 SECONDS (9.4-12.5)
[2024-02-18 11:31] LABS: PTT Partial Thromboplastin Tim 28 SECONDS (25.1-36.5)
[2024-02-18 11:33] LABS: Alanine Aminotransferase 27 IU/L (<50); Aspartate Aminotransferase 30 IU/L (17-59); BUN Creatinine Ratio 17.6 (6-22); Bilirubin Total 0.8 mg/dL (0.2-1.3); Blood Urea Nitrogen 16 mg/dL (9-20); Calcium 9.6 mg/dL (8.4-10.2); Carbon Dioxide 29 mmol/L (22-32); Chloride 105 mmol/L (98-107); Creatine Kinase 71 U/L (55-170); Estimated Glomerular Filt Rate > 60 mL/min (>60); Glucose 104 mg/dL (70-100); Magnesium 2.2 mg/dL (1.6-2.3); Sodium 142 mmol/L (137-145)
[2024-02-18 11:34] LABS: Albumin 5.2 g/dL (3.5-5.0); Albumin Globulin Ratio 1.5 (1.0-2.8); Alkaline Phosphatase 59 U/L (38-126); Globulin 3.4 g/dL (1.7-4.1); HEMOLYSIS 53 (0-50); Lipase 117 U/L (23-300); Potassium 4.1 mmol/L (3.4-5.1); Total Protein 8.6 g/dL (6.3-8.2)
[2024-02-18 11:43] LABS: Troponin I < 0.012 ng/mL (0.01-0.034)
== END 2024-02-18 12:51 | disposition home or self-care (01) ==
PROVIDERS: Emergency Provider Emergency Medicine; PCP Internal Medicine
DX: R55 Syncope and collapse (principal)
CPT/HCPCS: 36415; 71045; 80053; 82550; 83690; 83735; 84484; 85025; 85610; 85730; 93005; 96374; 99284; J2405